=== PATIENT | male | born 1950 | race Caucasian/White ===

== ENCOUNTER 2023-11-22 14:37 | Inpatient (IN) ==
[2023-11-22] MEDS: ASPIRIN CHEW 324 MG ONE (14:57)
[2023-11-22] MEDS: TICAGRELOR 90 MG TAB ONE (15:03)
[2023-11-22] MEDS: HEPARIN SOD (PORCINE) 1000 UNIT/ML ONE (15:03)
--- NOTE | 2023-11-22 15:06 | Pre Anesthesia Assessment ---
Date of Service November 22, 2023 Pre Sedation Assessment Vital Signs Temp Pulse Pulse Resp BP BP Pulse Ox 11/22/23 15:00 57 L 14 146/115 H 11/22/23 14:59 66 17 95 11/22/23 14:59 146/115 H 11/22/23 14:59 55 L 11/22/23 14:59 11/22/23 14:56 56 L 22 11/22/23 14:40 96.8 F L 50 L 20 143/64 H 100 O2 Del Method O2 Flow Rate 11/22/23 15:00 Room Air 11/22/23 14:59 11/22/23 14:59 11/22/23 14:59 11/22/23 14:59 Room Air 95 11/22/23 14:56 11/22/23 14:40 Room Air Cardiovascular + regular rate Respiratory + respiratory effort normal Pre-Sedation Airway Assessment Smoking Status: Never smoker Hx Sleep Apnea: No Hx Difficult Intubation: No Short, Thick Neck: No Thyromental Distance: < 3.5 Finger Breadths Oral Cavity: + Dental Abnormalities Mallampati Class: III ASA: ASA4 Procedure Planning Contraindications for Sedation: none Current Medications Reviewed: Yes Notes The planned sedation has been discussed with the patient. Informed Consent was obtained. I have identified the patient, determined the appropriateness of sedation and have assessed the patient immediately prior to the procedure. All medicine(s) and interventions are by my order.
--- NOTE | 2023-11-22 15:12 | Cardiology Consultation ---
Date of Consultation November 22, 2023 Assessment & Plan (1) STEMI (ST elevation myocardial infarction): Presentation consistent with inferior STEMI and recommend proceeding with emergent cardiac catheterization and likely primary PCI. No apparent contraindications to procedure. Discussed risks, benefits, alternatives of procedure with patient and they are willing to proceed. Given IV heparin and ticagrelor 180 mg in the ED. Further recommendations pending findings of coronary angiography. History of Present Illness History of Present Illness 73-year-old male here with acute chest pain and ECG concerning for acute IA. Patient seen emergently in the ED after heart alert activated on arrival. No prior cardiac history. Cardiac risk factors include prediabetes, and reports multiple family members with cardiovascular disease. Also has a history of Crohn's disease on Humira. Chest pain began approximately 12:30 PM, approximately 2 hours prior to arrival. Describes substernal pain with associated nausea. Denies similar symptoms in the past. Ongoing chest pain in ED down to 3 out of 10. Hemodynamically stable. EKG showed sinus bradycardia with inferior ST elevations, Social history: Denies tobacco or alcohol. Still working doing arabella work. Allergies Allergy/AdvReac Type Severity Reaction Status Date / Time No Known Allergies Allergy Verified 11/22/23 15:06 Home Medications Medication Instructions Recorded Confirmed Type adalimumab 40 mg/0.4 mL 40 mg subcut .Q2WKS 11/22/23 11/22/23 History subcutaneous syringe kit (Humira(CF)) Patient History Social History Smoking Status: Never smoker Preferred Language: Hungarian Feels Safe at Home: Yes Review of Systems Review of Systems: Not obtained in the setting of emergent situation Physical Exam Physical Exam: General: Uncomfortable HEENT: Sclerae anicteric Lungs: Clear anteriorly Cardiac: Bradycardic, regular Vascular: 2+ radial Abdomen: Soft, nontender Extremities: Well perfused, no peripheral edema Neuro: Nonfocal Psych: Alert orient x3, normal affect and mood Results & Data Vital Signs (Past 12 Hours) Vital Signs Temp Pulse Pulse Resp BP BP Pulse Ox 11/22/23 15:00 57 L 14 146/115 H 11/22/23 14:59 66 17 95 11/22/23 14:59 146/115 H 11/22/23 14:59 55 L 11/22/23 14:59 11/22/23 14:56 56 L 22 11/22/23 14:40 96.8 F L 50 L 20 143/64 H 100 O2 Del Method O2 Flow Rate 11/22/23 15:00 Room Air 11/22/23 14:59 11/22/23 14:59 11/22/23 14:59 11/22/23 14:59 Room Air 95 11/22/23 14:56 11/22/23 14:40 Room Air PG Care Time/CCT Total # of Minutes Spent Total Time Spent with Patient: Total time spent is greater than 50% in coordination of care (as documented) at patient's floor/unit and/or counseling patient: Coding Level of Care Code 38482 OFFICE CONSULT LVL Diagnoses STEMI (ST elevation myocardial infarction) I21.3
--- NOTE | 2023-11-22 15:12 | History & Physical Report ---
Date of Service November 22, 2023 History of Present Illness Primary Care Provider: [facility] Jesus is a 73-year-old male with past medical history of [] who presents as a heart alert with an acute STEMI. Allergies Allergy/AdvReac Type Severity Reaction Status Date / Time No Known Allergies Allergy Verified 11/22/23 15:06 Home Medications Medication Instructions Recorded Confirmed Type adalimumab 40 mg/0.4 mL 40 mg subcut .Q2WKS 11/22/23 11/22/23 History subcutaneous syringe kit (Humira(CF)) Past Med/Surg History Problem List (Updated 11/22/23 @ 15:10 by Aly Stanford MD) STEMI (ST elevation myocardial infarction) Rectal fissure (Chronic) Diarrhea (Acute) Proctitis (Acute) Proctocolitis (Acute) Social History Smoking Status: Never smoker Preferred Language: Luxembourgish Feels Safe at Home: Yes Results & Data Results & Data Vital Signs (Past 12 Hours) Vital Signs Temp Pulse Pulse Resp BP BP Pulse Ox 11/22/23 15:04 11/22/23 15:00 150/86 H 11/22/23 15:00 59 L 19 11/22/23 15:00 57 L 14 146/115 H 11/22/23 14:59 66 17 95 11/22/23 14:59 146/115 H 11/22/23 14:59 55 L 11/22/23 14:59 11/22/23 14:56 56 L 22 11/22/23 14:40 36 C L 50 L 20 143/64 H 100 O2 Del Method O2 Flow Rate 11/22/23 15:04 Room Air 11/22/23 15:00 11/22/23 15:00 Room Air 11/22/23 15:00 Room Air 11/22/23 14:59 11/22/23 14:59 11/22/23 14:59 11/22/23 14:59 Room Air 95 11/22/23 14:56 11/22/23 14:40 Room Air PG Care Time/CCT Total # of Minutes Spent Total Time Spent with Patient: Total time spent is greater than 50% in coordination of care (as documented) at patient's floor/unit and/or counseling patient: Coding
[2023-11-22 15:13] LABS: Basophils # (auto) 0.06 K/uL (0.00-0.20); Basophils % (auto) 0.5 %; Eosinophils # (auto) 0.02 K/uL (0.00-0.50); Eosinophils % (auto) 0.2 %; Hematocrit (blood only) 43.8 % (42.0-52.0); Hemoglobin 15.3 g/dl (14.0-18.0); Immature Granulocytes # (auto) 0.06 K/uL (0.01-0.20); Immature Granulocytes % (auto) 0.5 %; Mean Corpuscular Hemoglobin 30.5 pg (25.0-34.0); Mean Corpuscular Hgb Conc 34.9 g/dL (32.0-36.0); Mean Corpuscular Volume 87.4 fL (80.0-100.0); Mean Platelet Volume 11.4 fL (9.4-12.4); Monocytes % (auto) 5.2 %; Neutrophils # (auto) 8.62 K/uL (1.40-6.50); Neutrophils % (auto) 74.6 %; Platelet Count 176 K/uL (130-400); RDW Coefficient of Variation 13.1 % (11.5-14.5); RDW Standard Deviation 41.4 fL (36.4-46.3); Red Blood Count 5.01 M/uL (4.70-6.10); White Blood Count 11.56 K/ul (4.8-10.8)
[2023-11-22 15:16] LABS: iSTAT Creatinine 1.1 mg/dl (0.6-1.3); iSTAT Hemoglobin 15.3 g/dl (14.0-18.0); iSTAT Ionized Calcium 1.19 mmol/l (1.12-1.32); iSTAT Potassium 3.9 mmol/L (3.3-5.0)
--- NOTE | 2023-11-22 15:19 | Emergency Department Note ---
Impression & Plan STEMI (ST elevation myocardial infarction) ED Provider Note NAME: JC DE PAZ AGE: 73 SEX: M : 1950 ARRIVES VIA: Walk-In INFORMANT: Patient, ED PROVIDER(S): Lauren Hurley MD CHIEF COMPLAINT: STEMI HPI: This is a 73-year-old male with history of Crohn's on Humira presenting for chest pain. Patient states that he midsternal chest pain started on 1230, about 2.5 hours ago. He states he is working outside, got slightly diaphoretic and felt this going well with his heart. He went home washed the mud off of himself and came to the emergency department. He reports that the pain is radiating to the back as of slight shortness of breath. As she states that his pain has reduced since he arrived here. He was 6/10 on arrival, now 3/10. He has never any heart attacks however his family does have extensive cardiac history. He took 2 Tylenol prior to arrival. ROS: See above HPI for pertinent positives & negatives. A total of 10 systems reviewed and were otherwise negative. PHYSICAL EXAMINATION: General: resting comfortably in no acute distress Head: Normocephalic and atraumatic Eyes: Normal inspection, extraocular muscles intact Ear, nose, throat: Normal external exam Neck: Normal range of motion Respiratory: lungs clear to auscultation bilaterally Cardiovascular: Regular rate/rhythm, no murmur GI: soft, nontender, no guarding or rebound Extremities: nontender, moves all extremities Neuro: The patient awake and alert, appropriately conversive, no focal deficits, symmetric faces Skin: Warm, dry, and intact MEDICAL DECISION MAKING: This is a 73-year-old male with history of Crohn's on Humira presenting for chest pain. Patient's EKG shows an obvious inferior STEMI with elevations in leads II, III and aVF with a stable depressions in leads I and aVL. STEMI alert called me upon arrival. Patient given chewable aspirin here. Dr. Stanford, head scorer, currently at bedside. Recommends giving heparin as well as Brilinta. Will order these. Patient emergently transferred up to Pit Operator. Differential diagnosis: ACS, PE, dissection ER treatment provided: See below Diagnostics interpreted by me: ECG: ECG independently interpreted by me with sinus bradycardia, rate of 48, normal axis, normal UT, normal QRS, normal QTc, significant ST depressions in leads II, III and aVF with her blood pressure is only 1 and aVL as well as V2. this is consistent with STEMI Cardiac Monitoring: An order was placed for continuous cardiac monitoring. The monitor shows a rate of 52 with sinus rhythm. Laboratory studies: As stated above and show below. Imaging studies: See below. Past Med/Surg History Problem List (Updated 11/23/23 @ 11:37 by Lauren Hurley MD) CAD (coronary artery disease) Diabetes Crohn's disease STEMI (ST elevation myocardial infarction) (Acute) Rectal fissure (Chronic) Diarrhea (Acute) Proctitis (Acute) Proctocolitis (Acute) Social History Smoking Status: Never smoker Second Hand Exposure: No; Do You Dip or Chew Tobacco: No; Hx Alcohol Use: No Hx Substance Use: No Preferred Language: Serbian Communication Ability: Effective Needle Straightener Required: No Beliefs That Will Affect Care: None Current Living Situation: Spouse Other Information That Helps Us Care for You: No Feels Safe at Home: Yes Safety Concerns: Feels Safe At This Time Assistive Devices: None Allergies Allergies Allergy/AdvReac Type Severity Reaction Status Date / Time No Known Allergies Allergy Verified 11/22/23 15:06 Home Meds Home Medications Medication Instructions Recorded Confirmed adalimumab 40 mg/0.4 mL 40 mg subcut .Q2WKS 11/22/23 11/22/23 subcutaneous syringe kit (Humira(CF)) Results & Data (ED) Vital Signs Vital Signs - 24 hr 11/22/23 14:40 11/22/23 14:40 11/22/23 14:56 Temperature 36 C L Temperature Source Temporal Artery Scan Pulse Rate 50 L 56 L Pulse Rate [Apical] Respiratory Rate 20 22 Respiratory Effort / Characteristics Short of Breath Spontaneous Short of Breath Respiratory Depth Normal Blood Pressure 143/64 H Blood Pressure [Left Arm] Blood Pressure Mean 90 Blood Pressure Mean [Left Arm] Pulse Oximetry 100 Oxygen Delivery Method Room Air Oxygen Flow Rate Sepsis Recent Fever Within 48 Hours No Sepsis New/Unexplained Change in Mental Status N/A Sepsis Action Taken by Nursing No Action Required 11/22/23 14:59 11/22/23 14:59 11/22/23 14:59 Temperature Temperature Source Pulse Rate 55 L Pulse Rate [Apical] Respiratory Rate Respiratory Effort / Characteristics Respiratory Depth Blood Pressure 146/115 H Blood Pressure [Left Arm] Blood Pressure Mean 122 Blood Pressure Mean [Left Arm] Pulse Oximetry Oxygen Delivery Method Room Air Oxygen Flow Rate 95 Sepsis Recent Fever Within 48 Hours Sepsis New/Unexplained Change in Mental Status Sepsis Action Taken by Nursing 11/22/23 14:59 11/22/23 15:00 11/22/23 15:00 Temperature Temperature Source Pulse Rate 66 59 L Pulse Rate [Apical] 57 L Respiratory Rate 17 14 19 Respiratory Effort / Characteristics Respiratory Depth Blood Pressure Blood Pressure [Left Arm] 146/115 H Blood Pressure Mean Blood Pressure Mean [Left Arm] 125 Pulse Oximetry 95 Oxygen Delivery Method Room Air Room Air Oxygen Flow Rate Sepsis Recent Fever Within 48 Hours Sepsis New/Unexplained Change in Mental Status Sepsis Action Taken by Nursing 11/22/23 15:00 11/22/23 15:04 Temperature Temperature Source Pulse Rate Pulse Rate [Apical] Respiratory Rate Respiratory Effort / Characteristics Respiratory Depth Blood Pressure 150/86 H Blood Pressure [Left Arm] Blood Pressure Mean 102 Blood Pressure Mean [Left Arm] Pulse Oximetry Oxygen Delivery Method Room Air Oxygen Flow Rate Sepsis Recent Fever Within 48 Hours Sepsis New/Unexplained Change in Mental Status Sepsis Action Taken by Nursing Laboratory Data 11/23/23 03:36 11/23/23 03:36 Lab Results 11/22/23 11/22/23 Range/Units 14:58 15:04 WBC 11.56 H (4.8-10.8) K/ul RBC 5.01 (4.70-6.10) M/uL Hgb 15.3 (14.0-18.0) g/dl POC Hgb 15.3 (14.0-18.0) g/dl Hct 43.8 (42.0-52.0) % POC Hct 45 (42-52) % MCV 87.4 (80.0-100.0) fL MCH 30.5 (25.0-34.0) pg MCHC 34.9 (32.0-36.0) g/dL RDW Std Deviation 41.4 (36.4-46.3) fL RDW Coeff of Aquilino 13.1 (11.5-14.5) % Plt Count 176 (130-400) K/uL MPV 11.4 (9.4-12.4) fL Immature Gran % (Auto) 0.5 % Neut % (Auto) 74.6 % Lymph % (Auto) 19.0 % [place] % (Auto) 5.2 % Eos % (Auto) 0.2 % Baso % (Auto) 0.5 % Neut # (Auto) 8.62 H (1.40-6.50) K/uL Lymph # (Auto) 2.20 (1.20-3.40) K/uL [place] # (Auto) 0.60 H (0.11-0.59) K/uL Eos # (Auto) 0.02 (0.00-0.50) K/uL Baso # (Auto) 0.06 (0.00-0.20) K/uL Immature Gran # (Auto) 0.06 (0.01-0.20) K/uL PT 10.3 (9.0-12.0) Seconds INR 0.9 (0.9-1.1) APTT 23 (21-31) Seconds PTT Ratio 0.9 POC Sodium 141 (135-144) mmol/L Sodium 139 (136-145) mmol/L POC Potassium 3.9 (3.3-5.0) mmol/L Potassium 3.8 (3.5-5.1) mmol/L POC Chloride 105 (101-112) mmol/L Chloride 105 (98-107) mmol/L Carbon Dioxide 22 (21-32) mmol/L POC Total CO2 20 L (24-31) mmol/L Anion Gap 12 H (3-11) POC Anion Gap 21.0 (16-25) mmol/L POC BUN 14 (7-18) mg/dl BUN 14 (6-23) mg/dl Creatinine 1.09 (0.6-1.4) mg/dl POC Creatinine 1.1 (0.6-1.3) mg/dl Est Cr Clr Drug Dosing 58.7 ml/min Est GFR ( Amer) 78.2 ml/min Est GFR (Non-Af Amer) 67.5 ml/min BUN/Creatinine Ratio 12.8 (10-20) Glucose 175 H (70-99(Fasting)) mg/dl POC Glucose (other) 172 H (70-99) mg/dl Calcium 10.3 (8.6-10.3) mg/dl POC Ioniz Calcium Sandie 1.19 (1.12-1.32) mmol/l Total Bilirubin 1.8 H (0.2-1.0) mg/dl AST 21 (13-39) U/L ALT 14 (7-52) U/L Alkaline Phosphatase 59 (34-104) U/L Troponin I High Sens 9.8 (0-20) pg/ml Total Protein 7.6 (6.0-8.3) gm/dl Albumin 4.4 (3.4-5.0) gm/dl Globulin 3.2 (2.5-4.0) gm/dl Albumin/Globulin Ratio 1.4 (0.9-2) Administered Medications Aspirin (Aspirin 81 Mg Ectab) 81 mg PO [facility] Stop: 12/23/23 08:59 Last Admin: 11/23/23 08:13 Dose: 81 mg Documented By: MITZYB Atorvastatin Calcium (Atorvastatin 40 Mg Tab) 80 mg PO [facility] Stop: 12/23/23 08:59 Last Admin: 11/23/23 08:13 Dose: 80 mg Documented By: EDMOND [facility]inopril (L[facility]op[facility] 10 Mg Tab) [facility] Stop: 12/23/23 08:59 Last Admin: 11/23/23 08:13 Dose: 10 mg Documented By: EDMOND Metoprolol Tartrate (Metoprolol Tartrate 25 Mg Tab) 12.5 mg PO BID [facility] Stop: 12/22/23 20:59 Last Admin: 11/23/23 09:00 Dose: 12.5 mg Documented By: Admin: 11/22/23 20:50 Dose: 12.5 mg Documented By: GEORGI Pantoprazole Sodium (Pantoprazole 40 Mg Tab) [facility] Stop: 12/23/23 08:59 Last Admin: 11/23/23 08:14 Dose: 40 mg Documented By: EDMOND Ticagrelor (Ticagrelor 90 Mg Tab) 90 mg PO BID [facility] Stop: 12/23/23 08:59 Last Admin: 11/23/23 08:14 Dose: 90 mg Documented By: EDMOND Discontinued Medications Aspirin (Aspirin Chew 324 Mg) Confirm Administered Dose 324 mg .ROUTE .STK-MED ONE Stop: 11/22/23 14:57 Last Admin: 11/22/23 14:57 Dose: 324 mg Documented By: HS Atropine Sulfate (Atropine Sulfate 0.1 Mg/Ml 10ml Syr) Confirm Administered Dose 1 mg IV .STK-MED ONE Stop: 11/22/23 15:10 Last Admin: 11/22/23 15:33 Dose: 0.5 mg Documented By: INSTALLATION HELPER Eptifibatide (Eptifibatide 2 Mg/Ml 10 Ml Vial (Pit Operator Use Only)) Confirm Administered Dose 40 mg IV .STK-MED ONE Stop: 11/22/23 15:25 Last Admin: 11/22/23 15:41 Dose: 28 mg Documented By: INSTALLATION HELPER Eptifibatide (Eptifibatide 0.75 Mg/Ml 75mg Vial (Pit Operator Use Only)) Confirm Administered Dose 75 mg IV .STK-MED ONE Stop: 11/22/23 15:26 Last Admin: 11/22/23 15:42 Dose: 75 mg Documented By: INSTALLATION HELPER Fentanyl Citrate (Fentanyl Citrate Pf 100 Mcg/2 Ml Vial) Confirm Administered Dose 100 mcg .ROUTE .STK-MED ONE Stop: 11/22/23 15:00 Last Increment: 11/22/23 16:12 Dose: 25 mcg Documented By: INSTALLATION HELPER Heparin Sodium (Porcine) (Heparin (Porcine) 1000 Unit/Ml 10 Ml (Pit Operator Use Only)) Confirm Administered Dose 10,000 units .ROUTE .STK-MED ONE Stop: 11/22/23 15:00 Last Admin: 11/22/23 16:12 Dose: 8,000 units Documented By: INSTALLATION HELPER Heparin Sodium (Porcine) (Heparin Sod (Porcine) 1000 Unit/Ml) Confirm Administered Dose 1,000 units .ROUTE .STK-MED ONE Stop: 11/22/23 15:02 Last Admin: 11/22/23 15:03 Dose: 5,000 units Documented By: CHELSEA Co-signed By: ML Heparin Sodium/Sodium Chloride (Heparin In Nss Infusion 1000 Unit/500 Ml (2 U/Ml) Bag) Confirm Administered Dose 3,000 units IV .STK-MED ONE Stop: 11/22/23 15:00 Last Admin: 11/22/23 15:32 Dose: 3,000 units Documented By: INSTALLATION HELPER Sodium Chloride (Nss) 1,000 mls @ 100 mls/hr IV .Q10H [facility] Stop: 11/22/23 21:29 Last Infusion: 11/23/23 00:39 Dose: Infused Documented By: Admin: 11/22/23 16:50 Dose: 100 mls/hr Documented By: TDT Eptifibatide (Integrilin) 75 mg in 100 mls @ 12.352 mls/hr IV .Q8H6M PRECIOUS; Protocol Stop: 11/22/23 22:29 Last Infusion: 11/22/23 22:35 Dose: Infused Documented By: GEORGI Co-signed By: JUAN Infusion: 11/22/23 19:05 Dose: 2.01 mcg/kg/min, 12.4 mls/hr Documented By: GEORGI Co-signed By: MARIAM Admin: 11/22/23 16:49 Dose: 2 mcg/kg/min, 12.4 mls/hr Documented By: EDISON Co-signed By: MARIAM Magnesium Sulfate/Dextrose (Magnesium Sulfate / D5w) 1 gm in 100 mls @ 50 mls/hr IV ONE ONE Stop: 11/23/23 07:56 Last Infusion: 11/23/23 08:33 Dose: Infused Documented By: Admin: 11/23/23 06:31 Dose: 50 mls/hr Documented By: GEORGI Ioversol (Optiray 350) Confirm Administered Dose 1 ml .ROUTE .STK-MED ONE Stop: 11/22/23 15:01 Last Admin: 11/22/23 16:13 Dose: 135 ml Documented By: INSTALLATION HELPER Midazolam HCl (Midazolam Hcl 1 Mg/Ml 2ml Vial) Confirm Administered Dose 2 mg .ROUTE .STK-MED ONE Stop: 11/22/23 15:00 Last Increment: 11/22/23 16:13 Dose: 1 mg Documented By: INSTALLATION HELPER Miscellaneous (Icu Protocol For Hyperglycemia) 1 each N/A ACHS [facility] Stop: 11/24/23 16:29 Last Admin: 11/23/23 08:13 Dose: 1 each Documented By: Admin: 11/22/23 20:50 Dose: 1 each Documented By: Admin: 11/22/23 18:18 Dose: Not Given Documented By: MARIAM Miscellaneous (Integrelin~Stop Order) 1 each N/A ONE ONE Stop: 11/22/23 22:30 Last Admin: 11/22/23 22:29 Dose: 1 each Documented By: GEORGI Nicardipine HCl (Nicardipine Hcl Inj 2.5 Mg/Ml 10 Ml Amp) Confirm Administered Dose 25 mg .ROUTE .STK-MED ONE Stop: 11/22/23 15:00 Last Admin: 11/22/23 15:33 Dose: 25 mg Documented By: INSTALLATION HELPER Nitroglycerin/Dextrose (Nitroglycerin/D5w 100mcg/Ml 20ml Syr) Confirm Administered Dose 2,000 mcg .ROUTE .STK-MED ONE Stop: 11/22/23 15:01 Last Admin: 11/22/23 15:33 Dose: 2,000 mcg Documented By: INSTALLATION HELPER Ticagrelor (Ticagrelor 90 Mg Tab) Confirm Administered Dose 180 mg .ROUTE .STK- MED ONE Stop: 11/22/23 15:02 Last Admin: 11/22/23 15:03 Dose: 180 mg Documented By: CHELSEA Discharge Plan Visit Data Chief Complaint: Chest Pain Stated Complaint: CHEST PAINS, DIZZINESS ED Provider: Lauren Hurley Discharge Problem: STEMI (ST elevation myocardial infarction) Discharge Instructions Interventions: ED Discharge Assessment Last Done: 11/22/23 15:04
[2023-11-22 15:28] LABS: Albumin Globulin Ratio 1.4 (0.9-2); Albumin Level 4.4 gm/dl (3.4-5.0); BUN Creatinine Ratio 12.8 (10-20); Bilirubin,Total 1.8 mg/dl (0.2-1.0); Calcium 10.3 mg/dl (8.6-10.3); Creatinine Clr Calc Pharmacy 58.7 ml/min; Est GFR (African American) 78.2 ml/min; Est GFR (Non-African American) 67.5 ml/min; Globulin 3.2 gm/dl (2.5-4.0); Potassium 3.8 mmol/L (3.5-5.1); Total Protein 7.6 gm/dl (6.0-8.3)
[2023-11-22] MEDS: niCARdipine HCL INJ 2.5 MG/ML 10 ML AMP ONE (15:33)
[2023-11-22] MEDS: NITROGLYCERIN/D5W 100MCG/ML 20ML SYR ONE (15:33)
[2023-11-22] MEDS: ATROPINE SULFATE 0.1 MG/ML 10ML SYR IV ONE (15:33)
[2023-11-22 15:36] LABS: Troponin I High Sensitivity 9.8 pg/ml (0-20)
[2023-11-22 15:40] LABS: INR 0.9 (0.9-1.1); Partial Thromboplastin Ratio 0.9; Partial Thromboplastin Time 23 Seconds (21-31); Prothrombin Time 10.3 Seconds (9.0-12.0)
[2023-11-22] MEDS: EPTIFIBATIDE 2 MG/ML 10 ML VIAL (CATH LAB USE ONLY) IV ONE (15:41)
[2023-11-22] MEDS: EPTIFIBATIDE 0.75 MG/ML 75MG VIAL (CATH LAB USE ONLY) IV ONE (15:42)
[2023-11-22] MEDS: HEPARIN (PORCINE) 1000 UNIT/ML 10 ML (CATH LAB USE ONLY) ONE (16:12)
[2023-11-22] MEDS: fentaNYL citrate PF 100 MCG/2 ML VIAL ONE (16:12)
--- NOTE | 2023-11-22 16:12 | History & Physical Report ---
Date of Service November 22, 2023 Assessment & Plan (1) STEMI (ST elevation myocardial infarction): Plan: Substernal chest pain, nausea, and diaphoresis developed around 1230 on 11/21 Heart alert in the ED; EKG revealed acute inferior STEMI Ear Nose Throat Surgeon with Dr. Stanford 100% mid RCA occlusion; s/p 2 LIZZIE Patient admitted to ICU Appreciate Cardiology consult Will continue Integrilin infusion for 6 hours for residual thrombus Ticagrelor 180 mg loading given in the ED Trend troponins to peak Echocardiogram ordered for the morning of 11/22 Patient will likely require DAPT x 1 year Beta-blockers/REFUGIO High-dose statin A.m. CBC, BMP, A1c, fasting lipid panel, mag (2) Crohn's disease: Plan: Continue Humira Plan Disposition: Admit to ICU Full code AHA diet History of Present Illness Chief Complaint: Chest pain Primary Care Provider: [facility] Jesus is a 73-year-old male with PMH of Crohn's disease (on Humira), proctitis, and rectal fissure. Patient presented for chest pain that began around 1230 on 11/21. 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 Then when driving home, he developed "squeezing" substernal chest pain that was constant. The pain radiated to his back. No radiation to the shoulders neck or jaw. Patient then became diaphoretic and nauseous. He took 2 tablets of Tylenol prior to coming in to the ED. EKG on arrival revealed acute inferior STEMI, and heart alert was called. Patient was taken to the Ear Nose Throat Surgeon with Dr. Stanford. Per review of operative note, patient was found to have severe CAD; successful PCI. Mid RCA stent secondary to 100% acute occlusion; a second stent was placed in the distal right posterior AV branch. Patient is chest pain-free following the procedure. He rates his pain 0 out of 10. He denies having any chest pain in the past few weeks, or exertional angina. He does have a history of esophageal reflux, but he does not believe this was chest pain. No prior experiences like this 1. No prior MIs to his knowledge. No PMH of HTN, HLD, DM, DVT/PE, or PVD. He does note he is borderline diabetic. He denies smoking, tobacco use, alcohol use, or recreational drug use. He does have a family history of extensive MIs/CVAs; for instance his grandma of a stroke. No family members that of MIs prior to 55 years old. ROS postcatheterization: Patient endorses some dizziness following the procedure that has resolved. Patient denies fever, chills, sweating, lightheadedness, headache, changes in vision, chest pain, chest pressure, chest palpitations, pleuritic CP, SOB, cough, abdominal pain, N/V/D, changes in urinary or bowel habits, or numbness or tingling in the arms or legs. Allergies Allergy/AdvReac Type Severity Reaction Status Date / Time No Known Allergies Allergy Verified 11/22/23 15:06 Home Medications Medication Instructions Recorded Confirmed Type adalimumab 40 mg/0.4 mL 40 mg subcut .Q2WKS 11/22/23 11/22/23 History subcutaneous syringe kit (Humira(CF)) Past Med/Surg History Problem List (Updated 11/22/23 @ 17:47 by Maynor Moy PA-C) Crohn's disease STEMI (ST elevation myocardial infarction) Rectal fissure (Chronic) Diarrhea (Acute) Proctitis (Acute) Proctocolitis (Acute) Social History Smoking Status: Never smoker Second Hand Exposure: No; Do You Dip or Chew Tobacco: No; Hx Alcohol Use: No Hx Substance Use: No Preferred Language: Ukrainian Communication Ability: Effective Secretarial Teacher Required: No Beliefs That Will Affect Care: None Current Living Situation: Spouse Other Information That Helps Us Care for You: No Feels Safe at Home: Yes Safety Concerns: Feels Safe At This Time Assistive Devices: Glasses Review of Systems Review of Systems: See HPI above Physical Exam Physical Exam: General: no acute distress; pleasant affect; non-toxic appearing; well- nourished; cooperative; SpO2 97% on RA HEENT: normocephalic, atraumatic; no scleral icterus; PERRLA; moist mucus membrane; vision and hearing grossly intact Neck: supple; no lymphadenopathy; trachea midline Skin: warm, dry without signs of tenting; no cyanosis; no rashes, bruising, lesions, or erythema noted CV: chest wall NTP; RRR; S1/S2 normal; no murmurs/rubs/gallops; pulses intact and symmetric at radial, DP, and PT Lungs: no acute respiratory distress; symmetrical chest wall expansion; clear breath sounds across all lung farmer w/o adventitious sounds; no wheezing ABD: Soft, NTP; BS present; no rebound/guarding; no distention MSK: no tics or fasciculations; no edema noted in the LEs b/l, nonerythematous; patient demonstrates ability to squeeze fingers with 5/5 correspondence specialist strength bilaterally Neuro: A&Ox3; normal mood and affect; fluent speech; no focal deficits; sensation grossly intact in the LEs b/l Results & Data Results & Data Vital Signs (Past 12 Hours) Vital Signs Temp Pulse Pulse Resp BP BP Pulse Ox 11/22/23 15:04 11/22/23 15:00 150/86 H 11/22/23 15:00 59 L 19 11/22/23 15:00 57 L 14 146/115 H 11/22/23 14:59 66 17 95 11/22/23 14:59 146/115 H 11/22/23 14:59 55 L 11/22/23 14:59 11/22/23 14:56 56 L 22 11/22/23 14:40 36 C L 50 L 20 143/64 H 100 O2 Del Method O2 Flow Rate 11/22/23 15:04 Room Air 11/22/23 15:00 11/22/23 15:00 Room Air 11/22/23 15:00 Room Air 11/22/23 14:59 11/22/23 14:59 11/22/23 14:59 11/22/23 14:59 Room Air 95 11/22/23 14:56 11/22/23 14:40 Room Air Laboratory Results Abnormal lab results 11/22/23 11/22/23 11/22/23 Range/Units 14:58 15:04 15:32 WBC 11.56 H (4.8-10.8) K/ul Neut # (Auto) 8.62 H (1.40-6.50) K/uL Lyman # (Auto) 0.60 H (0.11-0.59) K/uL Activ Coag Time Kaolin 239 H (94-140) SECONDS POC Total CO2 20 L (24-31) mmol/L Anion Gap 12 H (3-11) Glucose 175 H (70-99(Fasting)) mg/dl POC Glucose (other) 172 H (70-99) mg/dl Total Bilirubin 1.8 H (0.2-1.0) mg/dl 11/22/23 Range/Units 15:42 WBC (4.8-10.8) K/ul Neut # (Auto) (1.40-6.50) K/uL Lyman # (Auto) (0.11-0.59) K/uL Activ Coag Time Kaolin 439 H (94-140) SECONDS POC Total CO2 (24-31) mmol/L Anion Gap (3-11) Glucose (70-99(Fasting)) mg/dl POC Glucose (other) (70-99) mg/dl Total Bilirubin (0.2-1.0) mg/dl ECG Additional Comments: ECG on arrival revealed sinus bradycardia at [address] elevation in the inferior leads; QTc 428 Code Status & VTE Plan Code Status Full code (discussed with patient and patient's daughter at the bedside) VTE Prophylaxis Plan VTE Prophylaxis will be ordered: Yes Supervising Physician Co-Signing Physician Notes Patient seen and examined, chart reviewed, case discussed with Maynor Moy PA-C and I agree with the assessment and plan as above except as otherwise noted Labs and images reviewed 73-year-old male with history of Crohn's disease on Humira with no prior cardiac history who presented with sudden squeezing substernal chest pain while moving stumps at work. EKG showed acute STEMI, patient proceeded with the Ear Nose Throat Surgeon as a heart alert. Had 2 stents to the RCA. Due to significant clot noted during procedure most of which was aspirated patient was placed on Integrilin drip. At time of ICU reassessment he remains pain-free. He denies past history of hypertension, hyperlipidemia, diabetes, blood clots, and heart attacks. Denies history of tobacco use. I agree with management as above. Patient will be continued on DAPT aspirin/Brilinta, metoprolol, lisinopril, atorvastatin. PG Care Time/CCT Total # of Minutes Spent Total Time Spent with Patient: Total time spent is greater than 50% in coordination of care (as documented) at patient's floor/unit and/or counseling patient: [place] [address] INT INP/OBS CARE 3/75MIN Patient Type New History Comprehensive Exam Comprehensive Medical Decision Making High Complexity Diagnoses STEMI (ST elevation myocardial infarction) I21.3 Crohn's disease K50.90
[2023-11-22] MEDS: OPTIRAY 350 ONE (16:13)
[2023-11-22] MEDS: MIDAZOLAM HCL 1 MG/ML 2ML VIAL ONE (16:13)
[2023-11-22] MEDS ORDERED: ACETAMINOPHEN 325 MG TAB PO PRN (16:24)
[2023-11-22] MEDS ORDERED: ONDANSETRON INJ 2 MG/ML 2 ML VIAL IV PRN (16:24)
[2023-11-22] MEDS ORDERED: EPTIFIBATIDE BOLUS/DRIP IV STA (16:24)
--- NOTE | 2023-11-22 16:24 | Post Anesthesia Assessment ---
Date of Service November 22, 2023 Post Sedation Assessment Vital Signs Temp Pulse Pulse Resp BP BP Pulse Ox 11/22/23 15:04 11/22/23 15:00 150/86 H 11/22/23 15:00 59 L 19 11/22/23 15:00 57 L 14 146/115 H 11/22/23 14:59 66 17 95 11/22/23 14:59 146/115 H 11/22/23 14:59 55 L 11/22/23 14:59 11/22/23 14:56 56 L 22 11/22/23 14:40 96.8 F L 50 L 20 143/64 H 100 O2 Del Method O2 Flow Rate 11/22/23 15:04 Room Air 11/22/23 15:00 11/22/23 15:00 Room Air 11/22/23 15:00 Room Air 11/22/23 14:59 11/22/23 14:59 11/22/23 14:59 11/22/23 14:59 Room Air 95 11/22/23 14:56 11/22/23 14:40 Room Air Recovery Score Activity: Moves 4 extremities Respiration: Deep Breath/Cough Circulation: +/-20% PreAnes Value Consciousness: Fully Awake Oxygen Saturation: O2 needed for >90% Discharge Sedation Level of Care: Fast Track Phase II Post Sedation Plan On clinical assessment, the patient appears to have tolerated the sedation without complications. Patient is recovering as anticipated. Patient will continue to be monitored by nursing and may be discharged when sedation discharge criteria are met per below protocol. Upon Completions of procedure up to 15 minutes continue every 5 minute vital signs and the P.A.R. score; then discharge to a Phase I or Fast Track to Phase II per the following guidelines: * Discharge Patient to appropriate Phase II area if PAR is 8 or greater or return to pre- procedure baseline. The post - procedure orders will be as directed. * If PAR score is less than 8 or not return to pre-procedure baseline then patient will follow Phase I monitoring till PAR is reached for Phase II. The Phase I may be done in procedure room or may call to secure a Phase I area. * If naloxone or flumazenil are used for reversal, hold in Phase I for continued monitoring from when last reversal dose was given for a minimum of 60 minutes or longer pending the nurse and/or physician discretion of patient condition before discharge to Phase II. Please call the Sedation Physician to re-evaluate and complete post-note for discharge to Phase II area. Do NOT discharge from procedure sedation or Phase 1 until post- sedation evaluation note is complete by procedure /sedation MD Sedation Discharge Instructions to be given to the patient at discharge to home.
--- NOTE | 2023-11-22 16:32 | Electrocardiogram Report ---
Test Reason : Blood Pressure : / mmHG Vent. Rate : 048 BPM Atrial Rate : 048 BPM P-R Int : 134 ms QRS Dur : 092 ms QT Int : 480 ms P-R-T Axes : 031 035 100 degrees QTc Int : [address] elevation consider inferior injury or acute infarct ACUTE ND / STEMI Consider right ventricular involvement in acute inferior infarct Abnormal ECG When compared with ECG of 27-JAN-1998 21:05, Significant changes have occurred Confirmed by Meet Oleary ([id number]) on 11/22/2023 4:32:25 PM Referred By: Confirmed By:Meet Oleary
--- NOTE | 2023-11-22 16:35 | Cardiac Catheterization ---
[facility] Data: Networker Cardiac Status Clinical evaluation leading to the procedure CAD Presenation: STEMI Anginal Classification: CCS IV Diagnostic Physicians Name: Aly Stanford MD Closure Device Recommendations: PCI without planned CABG Cardiac Cath Procedure Full Procedure Date November 22, 2023 Pre-Procedure Diagnosis Pre-Procedure Diagnosis: STEMI AUC Score AUC Score: 9 Post-Procedure Diagnosis Post-Procedure Diagnosis: Severe CAD, Successful PCI and Normal Intracardiac Pressures Procedure(s) Performed Procedure(s) Performed: Coronary Angiography, Left Heart Cath, Aspiration Thrombectomy and Drug Eluting Stent Chart Writer Aly Stanford MD Clay Dry Press Operator(s) De[place]ler Estimated Blood Loss Estimated Blood Loss: 30 Medication(s) Medication(s): Fentanyl, Heparin, Integrilin, Lidocaine 1%, Nicardipine, Nitroglycerin and Versed Medication(s): Ticagrelor Summary of Findings Indication: STEMI/Heart Alert Access: 6 Fr right radial artery Catheters: [place], JR4 guide, pigtail Findings: LM -normal caliber, 50% distal stenosis LAD -medium caliber, 40-50% ostial, 30% proximal disease 30% mid disease. Distal vessel without significant disease and wraps around apex. Small to medium D1 with 60% proximal stenosis Ramusmedium caliber, no significant disease Circumflex -medium caliber, 4050% latemid stenosis at takeoff of small OM 2 RCA -dominant, large caliber, diffuse mid segment disease prior to 100% acute occlusion LVEDP -4 -- PCI -- Antithrombotic therapy: Heparin, Integrilin, ticagrelor Procedure: RCA cannulated with JR4 guide BMW wire passed across lesion into distal vessel Mid RCA lesion predilated with 2.5 compliant balloon After flow reestablished due to have heavy thrombus burden in the mid RCA and distally in right posterior view branch and distal PDA. Also noted to have severe stenosis prior to terminal PLB. [place] wire placed into right posterior AV branch. Attempt made at aspiration thrombectomy Started on IC/IV Integrilin Dilated mid RCA lesion stented with 3.5 x 38 mm Riesel drug-eluting stent Stent post-dilated with 4.0 noncompliant balloon IC vasodilators administered for spasm Persistent thrombus in right posterior AV branch. BMW wire redirected into distal PLB Successful aspiration thrombectomy of proximal right posterior AV branch thrombus Distal posterior AV branch stenosis dilated with 2.0 balloon Distal posterior AV branch into terminal PLB stented with 2.25 x 12 mm [place] drug-eluting stent Additional IC vasodilators administered Post procedure CASTRO 3 flow, stents well expanded with minimal residual stenosis and no apparent cardiac complications. Minimal residual thrombus noted in distal PDA. ST segments improved and chest pain-free. Arterial Closure: TR band Summary: 1. Inferior STEMI/Acute 100% mid RCA occlusion 2. Multivessel non-culprit coronary artery disease -50% distal left main stenosis 40-50% ostial LAD. Small D1 60% proximal 40-50% mid circumflex 3. Normal intracardiac filling pressure 4. Successful PCI of mid RCA occlusion with single long drug-eluting stent (3.5 x 38 mm Riesel; postdilated with 4.0 NC). 5. Successful PCI of distal right posterior AV branch into PLB with single LIZZIE (2.25 x 12 mm Riesel). Recommendations: Admit to ICU for continued monitoring Continue Integrilin infusion for 6 hours for residual thrombus Loaded with ticagrelor 180 mg in ED Continue dual-antiplatelet therapy for at least 1 year. Trend troponins until peak, Check Echo Uptitrate beta-javad/REFUGIO as BP allows High-dose statin Consult cardiac Rehab Hemodynamics Rest Ao:: 159/81/111 Final Ao: 95/58/74 LV: 94/4 Recommendations Recommendations: PCI without planned CABG Radiation Exposure (mGy) 3392 Contrast (mls) 135 Anesthesia Moderate 4268-3881 Procedural Complication(s) None Disposition ICU I attest to the content of the Intraoperative Record and any orders documented therein. Any exceptions are noted below. [facility] Card Cath Procedure Codes Cardiac Catheterization Procedure 1: Cardiovascular Cath Procedures: 33395 Coronaries and LHC (+/-LV) Moderate Sedation Procedure 1: Sedation/Anesthesia: 57316 Mod Sedation by the same physician;Init15 Min Child Age 5 & Up Procedure 2: Sedation/Anesthesia: 40300 Mod Sedation by the same physician; Ea [id number] Minutes Stenting Procedure 1: Cardiovascular Stent Procedures: 32292 Perc transluminal revascularization of acute sub/total occl, aMI PG Care Time/CCT Total # of Minutes Spent Total Time Spent with Patient: Total time spent is greater than 50% in coordination of care (as documented) at patient's floor/unit and/or counseling patient:
[2023-11-22] MEDS: EPTIFIBATIDE 75 MG/100 ML VIAL IV SCH (16:49)
[2023-11-22] MEDS: SODIUM CHLORIDE 0.9% 1,000 ML IV SCH (16:50)
[2023-11-22] MEDS: ICU Protocol for HYPERglycemia SCH (18:18)
--- NOTE | 2023-11-22 19:56 | Critical Care Consultation ---
Date of Consultation November 22, 2023 Assessment & Plan (1) STEMI (ST elevation myocardial infarction): 73-year-old male without cardiac history, now admitted to ICU for following inferior STEMI. Patient currently hemodynamically stable without use of vasopressors and sinus rhythm on monitor. No further chest pain at this time. - S/p PCI of mid RCA with LIZZIE x 1, PCI of distal right posterior AV branch into PLB with LIZZIE x 1 - Continue Integrilin infusion for 6 hours for residual thrombus - Received loading dose of Brilinta 180 mg in ED - Dual antiplatelet 1 year - Follow-up hemoglobin A1c - Trend troponins for peak - Follow-up TTE - Statin, MTP, ACEI - Continuous monitoring on telemetry overnight in ICU - Appreciate cardiology recommendations (2) Crohn's disease: Stable. On Humira subcu Biweekly History of Present Illness Attending Physician: Tommy Parish MD History of Present Illness Patient is a 73-year-old male with past medical history of Crohn's disease (on Humira biweekly subcu), presented to the emergency department earlier this afternoon with complaints of chest pain with radiation to the back and diaphoresis. Patient was found to have inferior ST elevation on EKG and heart alert was initiated. He was taken to Presentation Team Member where he was found to have occlusion of the RCA and distal right posterior AV branch. He is s/p successful PCI with LIZZIE x2. He was also noted to have significant clot burden, and is now on Integrilin drip. Patient now transferred to the ICU post cath for further management at this time. On arrival to the ICU the patient is alert and oriented without acute distress and hemodynamically stable. He denies current chest pain or palpitations, shortness of breath, dizziness or syncope, diaphoresis, nausea or vomiting, abdominal pain,. He denies recent illness or fevers, cough or congestion, changes in gait, changes in vision, swelling in hands or feet, changes in urinary frequency. He has no previous cardiac history. He denies smoking, alcohol use, or drug use. Patient admitted in ICU for ongoing monitoring overnight. 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 Beliefs That Will Affect Care: None Current Living Situation: Spouse Other Information That Helps Us Care for You: No Feels Safe at Home: Yes Safety Concerns: Feels Safe At This Time Assistive Devices: Glasses Review of Systems Review of Systems: All systems reviewed & are unremarkable except as noted in HPI & below Physical Exam Constitutional: cooperative and comfortable Eyes: PERRL, conjunctivae normal, anicteric sclerae ENMT: external ear and nose normal, oropharynx normal Neck: trachea midline, no thyromegaly Respiratory: normal respiratory effort, lungs clear to auscultation Cardiovascular: Rate/Rhythm: regular rate and regular rhythm Heart Sounds: normal S1 and normal S2; no murmur Vessels: no JVD Extremities: no edema Gastrointestinal (Abdomen): normal bowel sounds, soft, nontender, no hepatosplenomegaly Musculoskeletal: no cyanosis or clubbing, extremities motor strength 5/5 Skin: no rashes, warm and dry Neurologic: PERRL, EOMI, accommodation nl, no face palsy, no dysarthria Psychiatric: A+Ox3, euthymic affect Results & Data Results & Data Vital Signs (Past 12 Hours) Vital Signs Temp Pulse Pulse Resp BP BP Pulse Ox 11/22/23 17:15 83 20 120/67 97 11/22/23 17:00 79 23 95/65 L 96 11/22/23 16:45 77 19 114/79 96 11/22/23 16:30 74 19 113/80 98 11/22/23 16:25 78 112/76 11/22/23 16:25 11/22/23 16:25 36.5 C 77 19 112/76 98 11/22/23 15:04 11/22/23 15:00 150/86 H 11/22/23 15:00 59 L 19 11/22/23 15:00 57 L 14 146/115 H 11/22/23 14:59 66 17 95 11/22/23 14:59 146/115 H 11/22/23 14:59 55 L 11/22/23 14:59 11/22/23 14:56 56 L 22 11/22/23 14:40 36 C L 50 L 20 143/64 H 100 O2 Del Method O2 Flow Rate 11/22/23 17:15 Room Air 11/22/23 17:00 Room Air 11/22/23 16:45 Room Air 11/22/23 16:30 Room Air 11/22/23 16:25 11/22/23 16:25 Room Air 11/22/23 16:25 Room Air 11/22/23 15:04 Room Air 11/22/23 15:00 11/22/23 15:00 Room Air 11/22/23 15:00 Room Air 11/22/23 14:59 11/22/23 14:59 11/22/23 14:59 11/22/23 14:59 Room Air 95 11/22/23 14:56 11/22/23 14:40 Room Air Coding Level of Care Code 07828 IN/OBS CONSULT LVL 2,35M Diagnoses STEMI (ST elevation myocardial infarction) I21.3 Crohn's disease K50.90 Time Spent (min) 42
[2023-11-22] MEDS: METOPROLOL TARTRATE 25 MG TAB PO SCH (20:50)
[2023-11-22] MEDS: [UNRECOGNIZED DRUG - REMARK] ONE (22:29)
[2023-11-23 04:09] LABS: Basophils # (auto) 0.03 K/uL (0.00-0.20); Basophils % (auto) 0.3 %; Eosinophils # (auto) 0.04 K/uL (0.00-0.50); Eosinophils % (auto) 0.5 %; Hematocrit (blood only) 42.6 % (42.0-52.0); Hemoglobin 14.3 g/dl (14.0-18.0); Immature Granulocytes # (auto) 0.01 K/uL (0.01-0.20); Immature Granulocytes % (auto) 0.1 %; Lymphocytes # (auto) 2.02 K/uL (1.20-3.40); Lymphocytes % (auto) 22.8 %; Mean Corpuscular Hemoglobin 29.6 pg (25.0-34.0); Mean Corpuscular Hgb Conc 33.6 g/dL (32.0-36.0); Mean Corpuscular Volume 88.2 fL (80.0-100.0); Mean Platelet Volume 11.6 fL (9.4-12.4); Monocytes # (auto) 0.69 K/uL (0.11-0.59); Monocytes % (auto) 7.8 %; Neutrophils # (auto) 6.08 K/uL (1.40-6.50); Neutrophils % (auto) 68.5 %; Platelet Count 164 K/uL (130-400); RDW Coefficient of Variation 13.2 % (11.5-14.5); RDW Standard Deviation 42.9 fL (36.4-46.3); Red Blood Count 4.83 M/uL (4.70-6.10); White Blood Count 8.87 K/ul (4.8-10.8)
[2023-11-23 04:24] LABS: BUN Creatinine Ratio 16.3 (10-20); Calcium 9.3 mg/dl (8.6-10.3); Chol HDL Ratio 4.1 (0-5); Creatinine Clr Calc Pharmacy 72.6 ml/min; Est GFR (African American) 103.4 ml/min; Est GFR (Non-African American) 89.2 ml/min; Magnesium 1.9 mg/dl (1.7-2.4); Potassium 4.1 mmol/L (3.5-5.1)
[2023-11-23] MEDS: MAGNESIUM SULFATE / D5W 1 GM/100 ML BAG IV ONE (06:31)
[2023-11-23 07:47] LABS: Estimated Average Glucose 137 mg/dl; Hemoglobin A1C 6.4 % (4.5-5.6)
--- NOTE | 2023-11-23 07:48 | Critical Care Progress Note ---
Date of Service November 23, 2023 Assessment & Plan (1) STEMI (ST elevation myocardial infarction): (2) Diabetes: Plan Impression: 73-year-old male admitted with acute inferior HI status post cardiac catheterization with drug-eluting stent to the right coronary artery and distal right posterior AV branch. Multifocal disease otherwise. He is doing well clinically. Recommendations: 1. Acute HI: Continue dual antiplatelet agents. Beta-javad and REFUGIO inhibitor will be uptitrated. 2. Will need cardiac rehab as an outpatient. 3. Await follow-up echocardiogram. 4. Elevated A1c, consistent with diagnosis of diabetes. Insulin control for now. Will likely need transition to oral hypoglycemic and close outpatient follow-up Patient stable to transfer out of the intensive care unit. Critical care services will sign off. Feel free to contact us with questions or concerns Admission and Anticipated Discharge Date Admission Date: November 22, 2023 Subjective Patient seen and examined. EMR reviewed. Discussed with critical care UMER overnight. Patient is awake alert and conversant this morning. He has no chest pain. No shortness of breath. He tolerated diet. No nausea or vomiting. His cath site is clean dry and intact with no paresthesias. He overall feels well Review of Systems Review of Systems: All systems reviewed & are unremarkable except as noted in Subjective Physical Exam Constitutional: WD/WN, vitals as above Neck: trachea midline, no thyromegaly Respiratory: normal respiratory effort, lungs clear to auscultation Cardiovascular: RRR, no murmur, no edema Gastrointestinal (Abdomen): normal bowel sounds, soft, nontender, no hepatosplenomegaly Musculoskeletal: Extremities: extremities normal to inspection Skin: no rashes, warm and dry Neurologic: Nonfocal exam Lymphatic: no cervical lymphadenopathy Results & Data Results & Data Vital Signs (Past 12 Hours) Vital Signs Temp Pulse Resp BP Pulse Ox 11/23/23 06:30 67 18 98 11/23/23 06:17 54 L 15 98 11/23/23 06:02 58 L 28 H 99 11/23/23 05:45 58 L 20 98 11/23/23 05:30 58 L 27 H 99 11/23/23 05:16 55 L 20 98 11/23/23 05:00 52 L 18 98 11/23/23 05:00 145/82 H 11/23/23 04:45 60 21 98 11/23/23 04:30 54 L 21 97 11/23/23 04:15 55 L 24 97 11/23/23 04:00 54 L 21 98 11/23/23 04:00 145/82 H 11/23/23 03:58 36.9 C 11/23/23 03:45 54 L 27 H 96 11/23/23 03:30 53 L 20 99 11/23/23 03:15 56 L 28 H 99 11/23/23 03:00 135/82 11/23/23 03:00 50 L 23 97 11/23/23 02:56 51 L 22 97 11/23/23 02:56 131/79 11/23/23 02:46 54 L 22 96 11/23/23 02:31 49 L 22 97 11/23/23 02:30 128/76 11/23/23 02:28 59 L 21 98 11/23/23 02:15 54 L 21 98 11/23/23 02:00 129/71 11/23/23 02:00 56 L 17 99 11/23/23 01:45 57 L 22 98 11/23/23 01:45 127/70 11/23/23 01:32 51 L 25 H 97 11/23/23 01:30 107/60 11/23/23 01:28 52 L 21 96 11/23/23 01:15 54 L 25 H 98 11/23/23 01:15 125/74 11/23/23 01:00 56 L 23 96 11/23/23 01:00 132/73 11/23/23 00:45 54 L 21 97 11/23/23 00:30 106/64 11/23/23 00:30 57 L 20 97 11/23/23 00:15 126/78 11/23/23 00:15 53 L 22 98 11/23/23 00:00 56 L 11/23/23 00:00 120/75 11/23/23 00:00 58 L 19 100 11/23/23 00:00 36.9 C 11/22/23 23:45 51 L 15 98 11/22/23 23:45 109/72 11/22/23 23:30 133/78 11/22/23 23:30 60 26 H 99 11/22/23 23:15 122/71 11/22/23 23:15 55 L 25 H 96 11/22/23 23:00 57 L 15 97 11/22/23 23:00 113/72 11/22/23 22:45 124/66 11/22/23 22:45 56 L 22 97 11/22/23 22:30 120/67 11/22/23 22:30 65 17 98 11/22/23 22:15 119/74 11/22/23 22:15 69 20 98 11/22/23 22:00 65 24 97 11/22/23 21:45 122/69 11/22/23 21:45 59 L 21 98 11/22/23 21:30 108/73 11/22/23 21:30 58 L 23 98 11/22/23 21:15 127/73 11/22/23 21:15 57 L 24 98 11/22/23 21:00 61 23 98 11/22/23 21:00 116/72 11/22/23 20:45 118/75 11/22/23 20:45 62 21 100 11/22/23 20:30 118/70 11/22/23 20:30 61 17 97 11/22/23 20:15 120/71 11/22/23 20:15 61 24 97 11/22/23 20:00 37.0 C 11/22/23 20:00 123/77 11/22/23 20:00 61 24 98 Critical Care Results & Data Vital Signs (Past 12 Hours) Vital Signs Temp Pulse Resp BP Pulse Ox 11/23/23 06:30 67 18 98 11/23/23 06:17 54 L 15 98 11/23/23 06:02 58 L 28 H 99 11/23/23 05:45 58 L 20 98 11/23/23 05:30 58 L 27 H 99 11/23/23 05:16 55 L 20 98 11/23/23 05:00 52 L 18 98 11/23/23 05:00 145/82 H 11/23/23 04:45 60 21 98 11/23/23 04:30 54 L 21 97 11/23/23 04:15 55 L 24 97 11/23/23 04:00 54 L 21 98 11/23/23 04:00 145/82 H 11/23/23 03:58 36.9 C 11/23/23 03:45 54 L 27 H 96 11/23/23 03:30 53 L 20 99 11/23/23 03:15 56 L 28 H 99 11/23/23 03:00 135/82 11/23/23 03:00 50 L 23 97 11/23/23 02:56 51 L 22 97 11/23/23 02:56 131/79 11/23/23 02:46 54 L 22 96 11/23/23 02:31 49 L 22 97 11/23/23 02:30 128/76 11/23/23 02:28 59 L 21 98 11/23/23 02:15 54 L 21 98 11/23/23 02:00 129/71 11/23/23 02:00 56 L 17 99 11/23/23 01:45 57 L 22 98 11/23/23 01:45 127/70 11/23/23 01:32 51 L 25 H 97 11/23/23 01:30 107/60 11/23/23 01:28 52 L 21 96 11/23/23 01:15 54 L 25 H 98 11/23/23 01:15 125/74 11/23/23 01:00 56 L 23 96 11/23/23 01:00 132/73 11/23/23 00:45 54 L 21 97 11/23/23 00:30 106/64 11/23/23 00:30 57 L 20 97 11/23/23 00:15 126/78 11/23/23 00:15 53 L 22 98 11/23/23 00:00 56 L 11/23/23 00:00 120/75 11/23/23 00:00 58 L 19 100 11/23/23 00:00 36.9 C 11/22/23 23:45 51 L 15 98 11/22/23 23:45 109/72 11/22/23 23:30 133/78 11/22/23 23:30 60 26 H 99 11/22/23 23:15 122/71 11/22/23 23:15 55 L 25 H 96 11/22/23 23:00 57 L 15 97 11/22/23 23:00 113/72 11/22/23 22:45 124/66 11/22/23 22:45 56 L 22 97 11/22/23 22:30 120/67 11/22/23 22:30 65 17 98 11/22/23 22:15 119/74 11/22/23 22:15 69 20 98 11/22/23 22:00 65 24 97 11/22/23 21:45 122/69 11/22/23 21:45 59 L 21 98 11/22/23 21:30 108/73 11/22/23 21:30 58 L 23 98 11/22/23 21:15 127/73 11/22/23 21:15 57 L 24 98 11/22/23 21:00 61 23 98 11/22/23 21:00 116/72 11/22/23 20:45 118/75 11/22/23 20:45 62 21 100 11/22/23 20:30 118/70 11/22/23 20:30 61 17 97 11/22/23 20:15 120/71 11/22/23 20:15 61 24 97 11/22/23 20:00 37.0 C 11/22/23 20:00 123/77 11/22/23 20:00 61 24 98 Lab & Micro Results (Past 24 Hours) RBC 4.83 M/uL (4.70-6.10) 11/23/23 WBC 8.87 K/ul (4.8-10.8) 11/23/23 Hgb 14.3 g/dl (14.0-18.0) 11/23/23 Hct 42.6 % (42.0-52.0) 11/23/23 MCV 88.2 fL (80.0-100.0) 11/23/23 MCH 29.6 pg (25.0-34.0) 11/23/23 MCHC 33.6 g/dL (32.0-36.0) 11/23/23 RDW Standard Deviation 42.9 fL (36.4-46.3) 11/23/23 RDW Coefficient of Variation 13.2 % (11.5-14.5) 11/23/23 Plt Count 164 K/uL (130-400) 11/23/23 MPV 11.6 fL (9.4-12.4) 11/23/23 Neutrophils (%) (Auto) 68.5 % 11/23/23 Lymphocytes (%) (Auto) 22.8 % 11/23/23 Monocytes # (Auto) 0.69 K/uL (0.11-0.59) H 11/23/23 Eosinophils # (Auto) 0.04 K/uL (0.00-0.50) 11/23/23 Immature Granulocyte % (Auto) 0.1 % 11/23/23 Neutrophils # (Auto) 6.08 K/uL (1.40-6.50) 11/23/23 Lymphocytes # (Auto) 2.02 K/uL (1.20-3.40) 11/23/23 Monocytes # (Auto) 0.69 K/uL (0.11-0.59) H 11/23/23 Eosinophils # (Auto) 0.04 K/uL (0.00-0.50) 11/23/23 Basophils # (Auto) 0.03 K/uL (0.00-0.20) 11/23/23 Immature Granulocyte # (Auto) 0.01 K/uL (0.01-0.20) 4 Na 137 mmol/L (136-145) 11/23/23 K 4.1 mmol/L (3.5-5.1) 11/23/23 Cl 107 mmol/L (98-107) 11/23/23 CO2 23 mmol/L (21-32) 11/23/23 Anion Gap 7 (3-11) 11/23/23 BUN 13 mg/dl (6-23) 11/23/23 Creatinine 0.80 mg/dl (0.6-1.4) 11/23/23 Estimated GFR ( Amer) 103.4 ml/min 11/23/23 Estimated GFR (Non-Af Amer) 89.2 ml/min 11/23/23 BUN/Creatinine Ratio 16.3 (10-20) 11/23/23 Glu 120 mg/dl (70-99(Fasting)) H 11/23/23 Ca 9.3 mg/dl (8.6-10.3) 11/23/23 Total Bilirubin 1.8 mg/dl (0.2-1.0) H 11/22/23 AST 21 U/L (13-39) 11/22/23 ALT 14 U/L (7-52) 11/22/23 Alkaline Phosphatase 59 U/L (34-104) 11/22/23 TP 7.6 gm/dl (6.0-8.3) 11/22/23 Albumin 4.4 gm/dl (3.4-5.0) 11/22/23 Globulin 3.2 gm/dl (2.5-4.0) 11/22/23 Albumin/Globulin Ratio 1.4 (0.9-2) 11/22/23 Mg 1.9 mg/dl (1.7-2.4) 11/23/23 03:36 Calcium Level 9.3 mg/dl (8.6-10.3) 11/23/23 03:36 Prothromb Time International Ratio 0.9 (0.9-1.1) 11/22/23 14:5 8 I & O Totals 24 Hours 11/22/23 11/23/23 11/24/23 06:59 06:59 06:59 Intake Total 1081.000 / 1081.000 Output Total 650 / 650 Balance 431.000 / 431.000 Cumulative 11/22/23 14:37 thru 11/23/23 06:00 Intake Total 1081.000 Output Total 650 Balance 431.000 RT Ventilator Mngmt (Last Documented) Ventilator Ordered Settings Respiratory Rate 18 11/23/23 06:30 Ventilator - PT Measurements Respiratory Rate 18 Coding Level of Care Code 82936 SUB INP/OBS CARE 2/35MIN Diagnoses STEMI (ST elevation myocardial infarction) I21.3 Diabetes E11.9
[2023-11-23] MEDS: ASPIRIN 81 MG ECTAB PO SCH (08:13)
[2023-11-23] MEDS: lisinopril 10 MG TAB PO SCH (08:13)
[2023-11-23] MEDS: ATORVASTATIN 40 MG TAB PO SCH (08:13)
[2023-11-23] MEDS: PANTOprazole 40 MG TAB PO SCH (08:14)
[2023-11-23] MEDS: TICAGRELOR 90 MG TAB PO SCH (08:14)
[2023-11-23] MEDS ORDERED: lisinopril 5 MG TAB PO SCH (09:00)
--- NOTE | 2023-11-23 10:04 | Cardiology Progress Note ---
Date of Service November 23, 2023 Assessment & Plan (1) CAD (coronary artery disease): Plan: Inferior ME LIZZIE mid RCA, posterior AV branch Residual 50% distal left main, 40-50% ostial LAD, 60% small D1, 45% mid LCx 2. Ischemic cardiomyopathyEF 45 to 50%, inferior/inferoseptal wall motion abnormality 3. DyslipidemiaLDL 110 4. Borderline [id number] 6.4 5. Brief nonsustained VT 6. Crohn's disease 7. Mildly dilated ascending aorta, mild AI Doing well post ME. Chest pain-free. Hemodynamically stable No signs of heart failure on exam. No apparent access site complications. Low normal LV function on echo Trend troponin until peak Continue DAPT with aspirin, ticagrelor Lisinopril increased to 10 mg daily. Continue current metoprolol with relative bradycardia. Transition to Toprol- XL on discharge Continue current statin city clerk From a cardiac standpoint okay with transition to telemetry. Assuming no additional significant ectopy likely home tomorrow morning. Admission and Anticipated Discharge Date Admission Date: November 22, 2023 Subjective Feeling well this morning. No recurrent chest pain. Up walking in room to room. Telemetry reviewedbrief episodes of nonsustained VT, longest 7 beats. Review of Systems Review of Systems: All systems reviewed & are unremarkable except as noted in HPI & below Physical Exam Physical Exam: General: Comfortable HEENT: Sclerae anicteric Lungs: Clear to auscultation bilaterally, no crackles or wheezes Cardiac: Regular rate and rhythm, no murmurs. Vascular: Right radial artery access site with no ecchymosis, hematoma. Distal pulse and sensation intact. No carotid bruit Abdomen: Soft, nontender Extremities: Well perfused, no peripheral edema Neuro: Nonfocal Psych: Alert orient x3, normal affect and mood Results & Data Vital Signs (Past 12 Hours) Vital Signs Temp Pulse Resp BP Pulse Ox 11/23/23 09:03 65 13 98 11/23/23 08:32 72 15 98 11/23/23 08:00 141/88 H 11/23/23 08:00 55 L 20 98 11/23/23 07:46 66 22 98 11/23/23 07:30 66 20 98 11/23/23 07:00 137/83 11/23/23 07:00 59 L 23 98 11/23/23 06:30 67 18 98 05/22/24 06:17 54 L 15 98 11/23/23 06:02 58 L 28 H 99 11/23/23 05:45 58 L 20 98 11/23/23 05:30 58 L 27 H 99 11/23/23 05:16 55 L 20 98 11/23/23 05:00 52 L 18 98 11/23/23 05:00 145/82 H 11/23/23 04:45 60 21 98 11/23/23 04:30 54 L 21 97 11/23/23 04:15 55 L 24 97 11/23/23 04:00 54 L 21 98 11/23/23 04:00 145/82 H 11/23/23 03:58 98.4 F 11/23/23 03:45 54 L 27 H 96 11/23/23 03:30 53 L 20 99 11/23/23 03:15 56 L 28 H 99 11/23/23 03:00 135/82 11/23/23 03:00 50 L 23 97 11/23/23 02:56 51 L 22 97 11/23/23 02:56 131/79 11/23/23 02:46 54 L 22 96 11/23/23 02:31 49 L 22 97 11/23/23 02:30 128/76 11/23/23 02:28 59 L 21 98 11/23/23 02:15 54 L 21 98 11/23/23 02:00 129/71 11/23/23 02:00 56 L 17 99 11/23/23 01:45 57 L 22 98 11/23/23 01:45 127/70 11/23/23 01:32 51 L 25 H 97 11/23/23 01:30 107/60 11/23/23 01:28 52 L 21 96 11/23/23 01:15 54 L 25 H 98 11/23/23 01:15 125/74 11/23/23 01:00 56 L 23 96 11/23/23 01:00 132/73 11/23/23 00:45 54 L 21 97 11/23/23 00:30 106/64 11/23/23 00:30 57 L 20 97 11/23/23 00:15 126/78 11/23/23 00:15 53 L 22 98 05/22/24 00:00 56 L 05/24 00:00 120/75 11/23/23 00:00 58 L 19 100 11/23/23 00:00 98.4 F 11/22/23 23:45 51 L 15 98 11/22/23 23:45 109/72 11/22/23 23:30 133/78 11/22/23 23:30 60 26 H 99 11/22/23 23:15 122/71 11/22/23 23:15 55 L 25 H 96 11/22/23 23:00 57 L 15 97 11/22/23 23:00 113/72 11/22/23 22:45 124/66 11/22/23 22:45 56 L 22 97 11/22/23 22:30 120/67 11/22/23 22:30 65 17 98 11/22/23 22:15 119/74 11/22/23 22:15 69 20 98 11/22/23 22:00 65 24 97 PG Care Time/CCT Total # of Minutes Spent Total Time Spent with Patient: Total time spent is greater than 50% in coordination of care (as documented) at patient's floor/unit and/or counseling patient: Coding Level of Care Code 06496 SUB INP/OBS CARE 3/50MIN Diagnoses CAD (coronary artery disease) I25.10
--- NOTE | 2023-11-23 12:50 | XCELERA ---
[id number] [id number]
--- OUTSIDE RECORDS SUMMARY | 2023-11-23 13:16 | External Medical Summary | Summary of Care ---
Author Name Unknown Organization [facility] Address [address] [facility] [place] [address] Phone [phone] Care Team Providers Care Blurb Writer Name Role Phone Unavailable Primary Care Provider Unavailabl e Reason for Visit * Reason Onset Date Comments Patient Assistance Program 07/13/2023 11 TS W PATIENT ASSISTANCE- WAITING ON PROVIDER PORTION Encounter Details Date Type Department Care Team (Late st Contact Info) Description 07/13/2023 Telephone Gastroenterology, [facility] [address] [place] [address] Carolina Noyola CRNP [address] [place] [address] Patient Assistance Program (11 TSW PATIENT... Allergies No known active allergiesdocumented as of this encounter (statuses as of 08/29/2023) Medications Medication Sig Dispensed Refills Start Date End Date Status Multiple Vitamins-Minerals (ONE-A-DAY MENS HEALTH FORMULA) TABS Take by mouth. 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 Increased risk for Familial Adenomatous Polyposis. Please click the link below into your browser for a brief summary of current clinical management recommendations for Familial Adenomatous Polyposis. APC Crohn disease 04/09/2020 History of basal cell carcinoma 04/09/2020 documented as of this encounter (statuses as of 08/29/2023) Immunizations Name Administration Dates Next Due Hepatitis B, 20+ yrs 01/05/2017,08/06/2016,07/06 documented as of this encounter Social History Tobacco Use Types Packs/Day Years Used Date Smoking Tobacco: Never Smokeless Tobacco: Never Alcohol Use Standard Drinks/Week Comments Not Currently 0 (1 standard drink = 0.6 oz pur e alcohol) Sex and Gender Information Value Date Recorded Sex Assigned at Not on file Gender Identity Not on file Sexual Orientation Not on file Job Start Date Occupation Industry Not on file Not on file Not on file documented as of this encounter Miscellaneous Notes * Telephone Encounter - Marcos James RPh - 08/29/2023 9:37 AM EST Per [facility] notes, patient is to continue to receive from office machine punch operator. I attempted to contact patient - no answer and unable to leave voicemail. Will follow-up as indicated. Marcos James RPh Clinical Pharmacist, Gastroenterology 08/29/2023,9:38 AM * Telephone Encounter - Marcos James RP - 08/18/2023 10:25 AM EST Chart reviewed. Patient has given new pharmacy insurance information to [facility] and will be due to refill this week. Will continue to monitor and follow-up as indicated Marcos James RPh Clinical Pharmacist, Gastroenterology 08/18/2023,10:25 AM * Telephone Encounter - Sara Whitaker RN - 08/09/2023 11:38 AM EST Received a notification fax that Jesus was approved for My [employer] Assist. Approved through 08/03/2024. * Telephone Encounter - Marcos James [facility] - 08/03/2023 10:38 AM EST Noted - thank you! Per chart, patient's insurance will be active on 08/13. Per pre-cert, the office machine punch operator application is awaiting patient to submit income. Marcos James [facility] Clinical Pharmacist, Gastroenterology 08/03/2023,10:38 AM * Telephone Encounter - Marcos James [facility] - 08/03/2023 9:01 AM EST GSP - I see notes that Humira was recently shipped. Patient has been in the process of manufacturerpatient assistance since he started the year without Part D coverage. May you advise if this patient can continue to refill and that the patient assistance can be cancelled? * Telephone Encounter - Vita Pascal RN - 07/21/2023 9:36 AM EST Form signed by Carolina And faxed to [phone] Then to scan [facility] * Telephone Encounter - Shanta Pearce RN - 07/20/2023 2:08 PM EST Forwarded email to Carolina for signature. Nurses, after form is signed, fax to [phone] * Telephone Encounter - Marcos James [facility] - 07/20/2023 12:38 PM EST I attempted to contact patient x 2 to follow-up. Phone disconnects after a couple rings. Manager Strategic Partnerships assistance is still in process * Telephone Encounter - Marcos James [facility] - 07/13/2023 3:40 PM EST Received a call back from patient. [facility] advised this is in process and if approved, it will notbe active until 08/04. Patient states his old Part D insurance no longer exists - they were supposed to send a letter but patient never received. Patient was advised to contact with updates or if symptoms develop. [facility] - may medication assistance be started? * Telephone Encounter - Marcos James [facility] - 07/13/2023 1:15 PM EST Spoke with patient. He states he did not know his Part D . He contacted Medicare and had been connected to obtain [employer] Part D coverage on 07/11/23 but states this may take up to 10 days to be active. I highly advised patient to contact [facility] today to inquire on status and to request theapplication be marked urgent. Patient may be able to be approved for office machine punch operator assistance but this would likely take a longer time than having active insurance. Patient has no pens and is due 07/15. Patient will return call to video game script writer with update. Gastro Pre-Cert Request Specialty Medication: Yes. Medication/Disease State Information: Medication: Adalimumab (Humira) Maintenance - 40mg/0.8ml Pen - 40mg every 2 weeks Diagnosis (including ICD-10): Crohn's disease K50.90. Specialty medication - route to [id number]. Referral to pharmacist for: co-management. Office Information: Prescriber: Carolina Noyola Pre-cert: may you please complete an insurance eligibility check and if there is new insurance, complete an urgent auth for Humira? * Telephone Encounter - Carolina Noyola CRNP - 07/13/2023 12:50 PM EST [facility] nurses - can you assist to see if pt can qualify for Humira pt assistance? Does his Medicare benefits not cover this med? LEANDRO Moulton * Telephone Encounter - Sirena Silverio OSA - 07/13/2023 9:44 AM EST Luh is calling to let you know that Jesus no longer has insurance so for now he will not be able to get his medication he takes humira. They are trying to get another insurance but nothing has happened yet with it documented in this encounter Plan of Treatment Upcoming Encounters Date Type Department Care Team (Late st Contact Info) Description 09/29/2023 8:15 AM EDT Office Visit Dermatology [place] [facility] [address] [facility] [place] [address] Jai Christensen MD [address] [facility] [place] [address] Scheduled Procedures Name Priority Associated Diagnoses Date/Ti me COLONOSCOPY FLEXIBLE PROXIMA L DIAGNOSTIC Recall Other general symptoms and signs Crohn's disease with complication, unspecified gastrointestinal tract location (HCC) Other specified symptoms and signs involving the digestive system and abdomen Health Maintenance Due Date Last Done Comments COVID-19 Vaccine (#1) 1955 Pneumococcal Vaccine: 65+ Years (1 of 2 - PCV) 1957 Depression Screening 1963 DTaP,Tdap,and Td Vaccines (1 - Tdap) 1970 Zoster Vaccines (1 of 2) 1970 Cologuard 1996 Fecal Occult Blood Test 1996 Sigmoidoscopy 1996 Lipid Panel 06/22/2021 06/22/2016 Influenza Vaccine (FLU shot) (#1) 2023 Colonoscopy 09/24/2032 09/24/2022, 09/02, 08/05/2017, Additional history exists Colorectal Cancer Screening 09/24/2032 Hepatitis C Screening Completed 06/25/2016 Hepatitis B Completed 01/05/2017, 09/2016, 07/06/2016 GARDASIL-HPV IMMUNIZATION SERIES Aged Out No longer eligible based on patient's age to complete this topic MENINGOCOCCAL (MENACTRA/MENVEO) Aged Out No longer eligible based on patient's age to complete this topic documented as of this encounter Medical Devices Not on filedocumented as of this encounter
--- OUTSIDE RECORDS SUMMARY | 2023-11-23 13:16 | External Medical Summary | Summary of Care ---
Author Name Unknown Organization [facility] Address [address] [facility] [place] [address] Phone [phone] Care Team Providers Care Head Of Loss Prevention Name Role Phone Unavailable Primary Care Provider Unavailabl e Encounter Details Date Type Department Care Team ([facility] st Contact Info) Description 07/27/2023 [facility]ty [facility] - 08/22/[address] [place] [address] Medication, [facility] Specialty Refill, [facility] [address] [place] [address] Allergies No known active allergiesdocumented as of this encounter (statuses as of 08/24/2023) Medications Medication Sig Dispensed Refills Start Date End Date Status Multiple Vitamins-Minerals (ONE-A-DAY MENS HEALTH FORMULA) TABS Take by mouth. 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 Increased risk for Familial Adenomatous Polyposis. Please click the link below into your browser for a brief summary of current clinical management recommendations for Familial Adenomatous Polyposis. APC Crohn disease 04/09/2020 History of basal cell carcinoma 04/09/2020 documented as of this encounter (statuses as of 08/24/2023) Immunizations Name Administration Dates Next Due Hepatitis [...] on file documented as of this encounter Progress Notes * Jena Argueta CPhT - 08/24/2023 4:59 PM EST Pt getting free drug Jena Argueta Die Casting Machine Maintainer III [facility] 08/24/2023,4:59 PM * Alexandra Nieves windshield repair technician - 07/28/2023 11:15 AM EST Incoming return call from pt to update insurance. Pt updated ins. Info prior but states carmelo it has a start date of 08/13. Pt is working with pt asst. waiting to hear from [employer]. Changed ship date until after insurace is active Kiana Nieves sound technician supervisor [facility] 07/28/2023 11:26 AM * Elizabeth Oliver CPhT - 07/27/2023 3:48 PM EST Prescribed medication: Medication: Humira Shipment date: 08/03 Delivery method: Specialty Mail Location Medication Delivered too? Prescription Address: [address] [place] [address] Elizabeth Oliver CPhT [facility] 07/27/2023,3:48 PM documented in this encounter Plan of Treatment Upcoming Encounters Date Type Department Care Team (Late st Contact Info) Description 09/29/2023 8:15 AM EDT Office Visit Dermatology [facility] Sm[facility] [place] [address] [facility] [place] [address] Jai Christensen MD [address] [facility] [place] [address] Scheduled Procedures Name Priority Associated Diagnoses Date/Ti [...]
--- OUTSIDE RECORDS SUMMARY | 2023-11-23 13:17 | External Medical Summary | Summary of Care ---
Author Name Unknown Organization [facility] Address [address] [facility] [place] [address] Phone [phone] Care Team Providers Care Ui Ux Developer Name Role Phone Unavailable Primary Care Provider Unavailabl e Encounter Details Date Type Department Care Team ([facility] st Contact Info) Description 07/27/2023 Specialty Pharmacy [facility], [address] [address] Medication, [place] Specialty Refill, [address] [address] Allergies No known active allergiesdocumented as of this encounter (statuses as of 07/28/2023) Medications Medication Sig Dispensed Refills Start Date End Date Status Multiple Vitamins-Minerals (ONE-A-DAY MENS HEALTH FORMULA) TABS Take by mouth. 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 Increased risk for Familial Adenomatous Polyposis. Please click the link below into your browser for a brief summary of current clinical management recommendations for Familial Adenomatous Polyposis. APC Crohn disease 04/09/2020 History of basal cell carcinoma 04/09/2020 documented as of this encounter (statuses as of 07/28/2023) Immunizations Name Administration Dates Next Due Hepatitis [...] as of this encounter Progress Notes * Alexandra Nieves PHARM Tech - 07/28/2023 11:15 AM EST Incoming return call from pt to update insurance. Pt updated ins. Info prior but states carmelo it has a start date of 08/13. Pt is working with pt asst. waiting to hear from [employer]. Changed ship date until after insurace is active Kiana Nieves costume technician [facility] 07/28/2023 11:26 AM * Elizabeth Oliver CPhT - 07/27/2023 3:48 PM EST Prescribed medication: Medication: Humira Shipment date: 08/03 Delivery method: Specialty Mail Location Medication Delivered too? Prescription Address: [address] [place], [place] [address]e [facility] [place] [address] [facility] 07/27/2023,3:48 PM documented in this encounter Plan of Treatment Upcoming Encounters Date Type Department Care Team (Late st Contact Info) Description 09/29/2023 8:15 AM EDT Office Visit Dermatology State [place] [address] [place] [address] Jai Christensen MD [address] [place] [address] Scheduled Procedures Name Priority Associated Diagnoses Date/Ti me COLONOSCOPY FLEXIBLE PROXIMA L DIAGNOSTIC Recall Other general symptoms and signs Crohn's disease with complication, unspecified gastrointestinal tract location (HCC) Other specified symptoms and signs involving the digestive system and abdomen Health Maintenance Due Date Last Done Comments COVID-19 Vaccine (#1) 1955 Pneumococcal Vaccine: 65+ Years (1 - PCV) 1957 Depression Screening 1963 DTaP,Tdap,and [...]
--- OUTSIDE RECORDS SUMMARY | 2023-11-23 13:17 | External Medical Summary | Summary of Care ---
Author Name Unknown Organization [facility] Address [address] [facility] [place] [address] Phone [phone] Care Team Providers Care Shake Packer Name Role Phone Unavailable Primary Care Provider Unavailabl e Reason for Visit * Reason Onset Date Comments Patient Assistance Program 07/13/2023 11 TS W PATIENT ASSISTANCE- WAITING ON PROVIDER PORTION Encounter Details Date Type Department Care Team (Late st Contact Info) Description 07/13/2023 Telephone Gastroenterology, [facility] [address] [place] [address] Carolina Noyola CRNP [address] [place] [address] Patient Assistance Program (11 TSW PATIENT... Allergies No known active allergiesdocumented as of this encounter (statuses as of 07/20/2023) Medications Medication Sig Dispensed Refills Start Date End Date Status Multiple Vitamins-Minerals (ONE-A-DAY MENS HEALTH FORMULA) TABS Take by mouth. 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 Increased risk for Familial Adenomatous Polyposis. Please click the link below into your browser for a brief summary of current clinical management recommendations for Familial Adenomatous Polyposis. APC Crohn disease 04/09/2020 History of basal cell carcinoma 04/09/2020 documented as of this encounter (statuses as of 07/20/2023) Immunizations Name Administration Dates Next Due Hepatitis [...] encounter Miscellaneous Notes * Telephone Encounter - Shanta Pearce RN - 07/20/2023 2:08 PM EST Forwarded email to Carolina for signature. Nurses, after form is signed, fax to [phone] * Telephone Encounter - Marcos James RPh - 07/20/2023 12:38 PM EST I attempted to contact patient x 2 to follow-up. Phone disconnects after a couple rings. Plant Controls Specialist assistance is still in process * Telephone Encounter - Marcos James RPh - 07/13/2023 3:40 PM EST Received a call back from patient. [facility] advised this is in process and if approved, it will notbe active until 08/04. Patient states his old Part D insurance no longer exists - they were supposed to send a letter but patient never received. Patient was advised to contact with updates or if symptoms develop. CM - may medication assistance be started? * Telephone Encounter - Marcos James RPh - 07/13/2023 1:15 PM EST Spoke with patient. He states he did not know his Part D . He contacted Medicare and had been connected to obtain [employer] Part D coverage on 07/11/23 but states this may take up to 10 days to be active. I highly advised patient to contact [facility] today to inquire on status and to request theapplication be marked urgent. Patient may be able to be approved for partition making machine operator assistance but this would likely take a longer time than having active insurance. Patient has no pens and is due 07/15. Patient will return call to advertising copywriter with update. Gastro Pre-Cert Request Specialty Medication: Yes. Medication/Disease State Information: Medication: Adalimumab (Humira) Maintenance - 40mg/0.8ml Pen - 40mg every 2 weeks Diagnosis (including ICD-10): Crohn's disease K50.90. Specialty medication - route to [id number]. Referral to pharmacist for: co-management. Office Information: Prescriber: Carolina Noyola Pre-cert: may you please complete an insurance eligibility check and if there is new insurance, complete an urgent auth for Humira? * Telephone Encounter - Carolina Noyola CRNP - 07/13/2023 12:50 PM EST IFTIKHAR Rodríguez nurses - can you assist to see [...] Office Visit Dermatology [place] [facility] [place] [address] [facility] [place] [address] Jai Christensen MD 200 [facility] [place] [address] Scheduled Procedures Name Priority Associated Diagnoses Date/Ti [...]
--- OUTSIDE RECORDS SUMMARY | 2023-11-23 13:17 | External Medical Summary | Summary of Care ---
Author Name Unknown Organization [facility] Address [address] [facility] [place] [address] Phone [phone] Care Team Providers Care Abstract Manager Name Role Phone Unavailable Primary Care Provider Unavailabl e Reason for Visit * Reason Onset Date Comments Patient Assistance Program 07/13/2023 11 TS W PATIENT ASSISTANCE- WAITING ON PROVIDER PORTION Encounter Details Date Type Department Care Team (Late st Contact Info) Description 07/13/2023 Telephone Gastroenterology, [facility] [address] [place] [address] Carolina Noyola CRNP [address] [place] [address] Patient Assistance Program (11 TSW PATIENT... Allergies No known active allergiesdocumented as of this encounter (statuses as of 07/21/2023) Medications Medication Sig Dispensed Refills Start Date End Date Status Multiple Vitamins-Minerals (ONE-A-DAY MENS HEALTH FORMULA) TABS Take by mouth. 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 Increased risk for Familial Adenomatous Polyposis. Please click the link below into your browser for a brief summary of current clinical management recommendations for Familial Adenomatous Polyposis. APC Crohn disease 04/09/2020 History of basal cell carcinoma 04/09/2020 documented as of this encounter (statuses as of 07/21/2023) Immunizations Name Administration Dates Next Due Hepatitis [...] encounter Miscellaneous Notes * Telephone Encounter - Vita Pascal RN - 07/21/2023 9:36 AM EST Form signed by Carolina And faxed to [phone] Then to scan bin * Telephone Encounter - Shanta Pearce RN - 07/20/2023 2:08 PM EST Forwarded email to Carolina for signature. Nurses, after form is signed, fax to [phone] * Telephone Encounter - Marcos James RPh - 07/20/2023 12:38 PM EST I attempted to contact patient x 2 to follow-up. Phone disconnects after a couple rings. [employer] assistance is still in process * Telephone Encounter - Marcos James RPh - 07/13/2023 3:40 PM EST Received a call back from patient. [facility] advised this is in process and if approved, it will notbe active until 2/1. Patient states his old Part D insurance no longer exists - they were supposed to send a letter but patient never received. Patient was advised to contact with updates or if symptoms develop. [facility] - may medication assistance be started? * Telephone Encounter - Marcos James [facility] - 07/13/2023 1:15 PM EST Spoke with patient. He states he did not know his Part D . He contacted Medicare and had been connected to obtain [employer] Part D coverage on 07/11/23 but states this may take up to 10 days to be active. I highly advised patient to contact [employer] today to inquire on status and to request theapplication be marked urgent. Patient may be able to be approved for vocational nurse lvn assistance but this would likely take a longer time than having active insurance. Patient has no pens and is due 07/15. Patient will return call to va underwriter with update. Gastro Pre-Cert Request Specialty Medication: Yes. Medication/Disease State Information: Medication: Adalimumab (Humira) Maintenance - 40mg/0.8ml Pen - 40mg every 2 weeks Diagnosis (including ICD-10): Crohn's disease K50.90. Specialty medication - route to [id number]. Referral to pharmacist for: co-management. Office Information: [...] AM EDT Office Visit Dermatology [place] [place] [address] [facility] [place] [address] Jai Christensen MD [address] [facility] [place] [address] Scheduled Procedures Name Priority Associated Diagnoses Date/Ti [...]
--- OUTSIDE RECORDS SUMMARY | 2023-11-23 13:17 | External Medical Summary | Summary of Care ---
Author Name Unknown Organization [facility] Address [address] [facility] [place] [address] Phone [phone] Care Team Providers Care Layout Man Name Role Phone Unavailable Primary Care Provider Unavailabl e Reason for Visit * Reason Onset Date Comments Patient Assistance Program 07/13/2023 11 TS W PATIENT ASSISTANCE- WAITING ON PROVIDER PORTION Encounter Details Date Type Department Care Team (Late st Contact Info) Description 07/13/2023 Telephone Gastroenterology, [facility] [address] [place] [address] Carolina Noyola CRNP [address] [place] [address] Patient Assistance Program (11 TSW PATIENT... Allergies No known active allergiesdocumented as of this encounter (statuses as of 08/03/2023) Medications Medication Sig Dispensed Refills Start Date End Date Status Multiple Vitamins-Minerals (ONE-A-DAY MENS HEALTH FORMULA) TABS Take by mouth. 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 Increased risk for Familial Adenomatous Polyposis. Please click the link below into your browser for a brief summary of current clinical management recommendations for Familial Adenomatous Polyposis. APC Crohn disease 04/09/2020 History of basal cell carcinoma 04/09/2020 documented as of this encounter (statuses as of 08/03/2023) Immunizations Name Administration Dates Next Due Hepatitis [...] Notes * Telephone Encounter - Marcos James RP - 08/03/2023 9:01 AM EST [facility] - [...] Form signed by Carolina And faxed to [phone] Then to donald valentine * Telephone Encounter - Shanta Pearce RN - 07/20/2023 2:08 PM EST Forwarded email to Carolina for signature. Nurses, after form is signed, fax to [phone] * Telephone Encounter - Marcos James [facility] - 07/20/2023 12:38 PM EST I attempted to contact patient x 2 to follow-up. Phone disconnects after a couple rings. Arc Welder Apprentice assistance is still in process * Telephone Encounter - Marcos James [facility] - 07/13/2023 3:40 PM EST Received a call back from patient. [facility] advised this is in process and if approved, it will notbe active until 08/04. Patient states his old Part D insurance no longer exists - they were supposed to send a letter but patient never received. Patient was advised to contact with updates or if symptoms develop. [facility] - may medication assistance be started? * Telephone Encounter - Marcos James [facility] - 07/13/2023 1:15 PM EST Spoke with patient. He states he did not know his Part D . He contacted Medicare and had been connected to obtain [employer] Part D coverage on 07/11/23 but states this may take up to 10 days to be active. I highly advised patient to [facility] today to inquire on status and to request theapplication be marked urgent. Patient may be able to be approved for scientific systems analyst assistance but this would likely take a longer time than having active insurance. Patient has no pens and is due 07/15. Patient will return call to technical writer and editor with update. Gastro Pre-Cert Request Specialty Medication: Yes. Medication/Disease State Information: Medication: Adalimumab (Humira) Maintenance - 40mg/0.8ml Pen - 40mg every 2 weeks Diagnosis (including ICD-10): Crohn's disease K50.90. Specialty medication - route to [id number]. Referral to pharmacist for: co-management. Office Information: [...] his Medicare benefits not cover this med? Carolina Fisher LEANDRO Noyola * Telephone Encounter - Sirena Silverio OSA [...] 09/29/2023 8:15 AM EDT Office Visit Dermatology [facility] [place] [address] [facility] [place] [address] Jai Christensen MD [address] [facility] [place] [address] Scheduled Procedures Name Priority Associated Diagnoses Date/Ti [...]
--- OUTSIDE RECORDS SUMMARY | 2023-11-23 13:17 | External Medical Summary | Summary of Care ---
Author Name Unknown Organization [facility] Address [address] [facility] [place] [address] Phone [phone] Care Team Providers Care Hairspring Cutter Name Role Phone Unavailable Primary Care Provider Unavailabl e Reason for Visit * Reason Onset Date Comments Patient Assistance Program 07/13/2023 11 TS W PATIENT ASSISTANCE- WAITING ON PROVIDER PORTION Encounter Details Date Type Department Care Team (Late st Contact Info) Description 07/13/2023 Telephone Gastroenterology, [facility] [address] [place] [address] Carolina Noyola CRNP [address] [place] [address] Patient Assistance Program (11 TSW PATIENT... Allergies [...] 10/28/2020 Overview: pathogenic APC gene variant ([id number], p.[id number]) detected via [employer]. Increased risk for Familial Adenomatous Polyposis. Please [...] Form signed by Carolina And faxed to [phone] * Telephone Encounter - Shanta Pearce RN - 07/20/2023 2:08 PM EST Forwarded email to Carolina for signature. Nurses, after form is signed, fax to [phone] * Telephone Encounter - Marcos James RPh - 07/20/2023 12:38 PM EST I attempted to contact patient x 2 to follow-up. Phone disconnects after a couple rings. Music Pastor assistance is still in process * Telephone Encounter - Marcos James RPh - 07/13/2023 3:40 PM EST Received a call back from patient. [facility] advised this is in process and if approved, it will notbe active until 08/04. Patient states his old Part D insurance no longer exists - they were supposed to send a letter but patient never received. Patient was advised to contact with updates or if symptoms develop. [facility] - may medication assistance be started? * Telephone Encounter - Marcos James [facility] - 07/13/2023 1:15 PM EST Spoke with patient. He states he did not know his Part D . He contacted Medicare and had been connected to obtain [employer] Part D coverage on 07/11/23 but states this may take up to 10 days to be active. I highly advised patient to contact [employer] today to inquire on status and to request theapplication be marked urgent. Patient may be able to be approved for claims support specialist assistance but this would likely take a longer time than having active insurance. Patient has no pens and is due 07/15. Patient will return call to medical technical writer with update. Gastro Pre-Cert Request Specialty Medication: Yes. Medication/Disease State Information: Medication: Adalimumab (Humira) Maintenance - 40mg/0.8ml Pen - 40mg every 2 weeks Diagnosis (including ICD-10): Crohn's disease K50.90. Specialty medication - route to [id number]. Referral to pharmacist for: co-management. Office Information: [...] AM EDT Office Visit Dermatology [place] [address] [facility] [place] [address] Jai Christensen MD [address] [facility] [place] [address] Scheduled Procedures Name Priority Associated Diagnoses Date/Ti [...]
--- OUTSIDE RECORDS SUMMARY | 2023-11-23 13:17 | External Medical Summary | Summary of Care ---
Author Name Unknown Organization [facility] Address [address] [facility] [place] [address] Phone [phone] Care Team Providers Care Family Mediator Name Role Phone Unavailable Primary Care Provider Unavailabl e Encounter Details Date Type Department Care Team ([facility] st Contact Info) Description 07/27/2023 Specialty Pharmacy [facility], [address] [address] Medication, [place] Specialty Refill, [address] [address] Allergies No known active allergiesdocumented as of this encounter (statuses as of 07/27/2023) Medications Medication Sig Dispensed Refills Start Date End Date Status Multiple Vitamins-Minerals (ONE-A-DAY MENS HEALTH FORMULA) TABS Take by mouth. 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 Increased risk for Familial Adenomatous Polyposis. Please click the link below into your browser for a brief summary of current clinical management recommendations for Familial Adenomatous Polyposis. APC Crohn disease 04/09/2020 History of basal cell carcinoma 04/09/2020 documented as of this encounter (statuses as of 07/27/2023) Immunizations Name Administration Dates Next Due Hepatitis [...] as of this encounter Progress Notes * Elizabeth Oliver CPhT - 07/27/2023 3:48 PM EST Prescribed medication: Medication: Humira Shipment date: 08/03 Delivery method: Specialty Mail Location Medication Delivered too? Prescription Address: [address] [place] [address] Elizabeth Oliver CPhT [facility] 07/27/2023,3:48 PM documented in this encounter Plan of Treatment Upcoming Encounters Date Type Department Care Team (Late st Contact Info) Description 09/29/2023 8:15 AM EDT Office Visit Dermatology [facility] [address] [place] [address] Jai Christensen MD [address] [place] [address] Scheduled Procedures Name Priority Associated Diagnoses Date/Ti [...]
--- OUTSIDE RECORDS SUMMARY | 2023-11-23 13:17 | External Medical Summary | Summary of Care ---
Author Name Unknown Organization [facility] Address [address] [facility] [place] [address] Phone [phone] Care Team Providers Care Region Manager Name Role Phone Unavailable Primary Care Provider Unavailabl e Reason for Visit * Reason Onset Date Comments Outpatient Testing 08/17/2023 Encounter Details Date Type Department Care Team (Late st Contact Info) Description 08/17/2023 Telephone Gastroenterology, [facility] [address] [place] [address] Carolina Noyola CRNP [address] [place] [address] Outpatient Testing Allergies No known active allergiesdocumented as of this encounter (statuses as of 08/17/2023) Medications Medication Sig Dispensed Refills Start Date End Date Status Multiple Vitamins-Minerals (ONE-A-DAY MENS HEALTH FORMULA) TABS Take by mouth. 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 Increased risk for Familial Adenomatous Polyposis. Please click the link below into your browser for a brief summary of current clinical management recommendations for Familial Adenomatous Polyposis. APC Crohn disease 04/09/2020 History of basal cell carcinoma 04/09/2020 documented as of this encounter (statuses as of 08/17/2023) Immunizations Name Administration Dates Next Due Hepatitis [...] encounter Miscellaneous Notes * Telephone Encounter - Carolina Noyola CRNP - 08/17/2023 10:49 AM EST Received fax from [employer] Administration requesting Negative TB test results 5 years old or less. Pt hasn't had recent TB test result. TB quant gold test is ordered. I called and asked pt to obtainthis test LEANDRO Moulton documented in this encounter Plan of Treatment Upcoming Encounters Date Type Department Care Team (Late st Contact Info) Description 09/29/2023 8:15 AM EDT Office Visit Dermatology [place] [address] [facility] [place] [address] Jai Christensen MD [address] [facility] [place] [address] Scheduled Orders Name Type Priority Associated Diagnoses Orde r Schedule QUANTIFERON TB GOLD PLUS Lab Routine Crohn's disease without complication, unspecified gastrointestinal tract location (HCC) Expected: 08/17/2023, Expires: 08/17/2024 Scheduled Procedures Name Priority Associated Diagnoses Date/Ti [...] Not on filedocumented as of this encounter Visit Diagnoses Diagnosis Crohn's disease without complication, unspecified gastrointestinal tract location (HCC)- Primary documented in this encounter
--- OUTSIDE RECORDS SUMMARY | 2023-11-23 13:17 | External Medical Summary | Summary of Care ---
Author Name Unknown Organization [facility] Address [address] [facility] [place] [address] Phone [phone] Care Team Providers Care Metal Buffer Name Role Phone Unavailable Primary Care Provider Unavailabl e Reason for Visit * Reason Onset Date Comments Patient Assistance Program 07/13/2023 11 TS W PATIENT ASSISTANCE- WAITING ON PROVIDER PORTION Encounter Details Date Type Department Care Team (Late st Contact Info) Description 07/13/2023 Telephone Gastroenterology, [facility] [address] [place] [address] Carolina Noyola CRNP [address] [place] [address] Patient Assistance Program (11 TSW PATIENT... Allergies No known active allergiesdocumented as of this encounter (statuses as of 08/18/2023) Medications Medication Sig Dispensed Refills Start Date End Date Status Multiple Vitamins-Minerals (ONE-A-DAY MENS HEALTH FORMULA) TABS Take by mouth. 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 Increased risk for Familial Adenomatous Polyposis. Please click the link below into your browser for a brief summary of current clinical management recommendations for Familial Adenomatous Polyposis. APC Crohn disease 04/09/2020 History of basal cell carcinoma 04/09/2020 documented as of this encounter (statuses as of 08/18/2023) Immunizations Name Administration Dates Next Due Hepatitis [...] Telephone Encounter - Marcos James RPh - 08/18/2023 10:25 AM EST Chart reviewed. Patient has given new pharmacy insurance information to [facility] and will be due to refill this week. Will continue to monitor and follow-up as indicated Marcos James RPh Clinical Pharmacist, Gastroenterology 08/18/2023,10:25 AM * Telephone Encounter - Sara Whitaker RN - 08/09/2023 11:38 AM EST Received a notification fax that Jesus was approved for My [employer] Assist. Approved through 08/03/2024. * Telephone Encounter - Marcos James RPh - 08/03/2023 10:38 AM EST Noted - thank you! Per chart, patient's insurance will be active on 08/13. Per pre-cert, the electronic musical instrument repairer application is awaiting patient to submit income. Marcos James RPh Clinical Pharmacist, Gastroenterology 08/03/2023,10:38 AM * Telephone Encounter - Marcos James [facility] - 08/03/2023 9:01 AM EST [facility] - I see notes that Davonteira was recently shipped. Patient has been in the process of manufacturerpatient assistance since he started the year without Part D coverage. May you advise if this patient can continue to refill and that the patient assistance can be cancelled? * Telephone Encounter - Vita Pascal RN - 07/21/2023 9:36 AM EST Form signed by Carolina And faxed to [phone] Then to donald valentine * Telephone Encounter - Shanta Pearce RN - 07/20/2023 2:08 PM EST Forwarded email to Carolina for signature. Nurses, after form is signed, fax to [phone] * Telephone Encounter - Marcos James [facility] - 07/20/2023 12:38 PM EST I attempted to contact patient x 2 to follow-up. Phone disconnects after a couple rings. Pin Game Machine Inspector assistance is still in process * Telephone Encounter - Marcos James [facility] - 07/13/2023 3:40 PM EST Received a call back from patient. [facility] advised this is in process and if approved, it will notbe active until 08/04. Patient states his old Part D insurance no longer exists - they were supposed to send a letter but patient never received. Patient was advised to contact with updates or if symptoms develop. [facility] - may medication assistance be started? * Telephone Encounter - Marcos James [facility] - 07/13/2023 1:15 PM EST Spoke with patient. He states he did not know his Part D . He contacted Medicare and had been connected to obtain [employer] Part D coverage on 07/11/23 but states this may take up to 10 days to be active. I highly advised patient to contact [facility] today to inquire on status and to request theapplication be marked urgent. Patient may be able to be approved for electronic musical instrument repairer assistance but this would likely take a longer time than having active insurance. Patient has no pens and is due 07/15. Patient will return call to display card writer with update. Gastro Pre-Cert Request Specialty Medication: Yes. Medication/Disease State Information: Medication: Adalimumab (Humira) Maintenance - 40mg/0.8ml Pen - 40mg every 2 weeks Diagnosis (including ICD-10): Crohn's disease K50.90. Specialty medication - route to [id number]. Referral to pharmacist for: co-management. Office Information: [...] AM EDT Office Visit Dermatology Car[facility] Sm[facility] [place] [address] [facility] [place] [address] Jai Christensen MD [address] [facility] [place] [address] Scheduled Procedures Name Priority Associated Diagnoses Date/Ti [...]
--- OUTSIDE RECORDS SUMMARY | 2023-11-23 13:17 | External Medical Summary | Summary of Care ---
Author Name Unknown Organization [facility] Address [address] [facility] [place] [address] Phone [phone] Care Team Providers Care It Support Analyst Name Role Phone Unavailable Primary Care Provider Unavailabl e Reason for Visit * Reason Onset Date Comments Patient Assistance Program 07/13/2023 11 TS W PATIENT ASSISTANCE- WAITING ON PROVIDER PORTION Encounter Details Date Type Department Care Team (Late st Contact Info) Description 07/13/2023 Telephone Gastroenterology, [facility] [address] [place] [address] Carolina Noyola CRNP [address] [place] [address] Patient Assistance Program (11 TSW PATIENT... Allergies No known active allergiesdocumented as of this encounter (statuses as of 08/09/2023) Medications Medication Sig Dispensed Refills Start Date End Date Status Multiple Vitamins-Minerals (ONE-A-DAY MENS HEALTH FORMULA) TABS Take by mouth. 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 Increased risk for Familial Adenomatous Polyposis. Please click the link below into your browser for a brief summary of current clinical management recommendations for Familial Adenomatous Polyposis. APC Crohn disease 04/09/2020 History of basal cell carcinoma 04/09/2020 documented as of this encounter (statuses as of 08/09/2023) Immunizations Name Administration Dates Next Due Hepatitis [...] encounter Miscellaneous Notes * Telephone Encounter - Sara Whitaker RN - 08/09/2023 11:38 AM EST Received a notification fax that Jesus was approved for My [employer] Assist. Approved through 08/03/2024. * Telephone Encounter - Marcos James RPh - 08/03/2023 10:38 AM EST Noted - thank you! Per chart, patient's insurance will be active on 08/13. Per pre-cert, the maintenance aide application is awaiting patient to submit income. Macros James RPh Clinical Pharmacist, Gastroenterology 08/03/2023,10:38 AM * Telephone Encounter - Marcos James RPh - 08/03/2023 9:01 AM EST [facility] - [...] Form signed by Carolina And faxed to [phone] Then to scan bin * Telephone Encounter - Shanta Pearce RN - 07/20/2023 2:08 PM EST Forwarded email to Carolina for signature. Nurses, after form is signed, fax to [phone] * Telephone Encounter - Marcos James [facility] - 07/20/2023 12:38 PM EST I attempted to contact patient x 2 to follow-up. Phone disconnects after a couple rings. Certified Ophthalmic Technologist assistance is still in process * Telephone Encounter - Marcos James [place] [facility] - 07/13/2023 3:40 PM EST Received a call back from patient. [facility] advised this is in process and if approved, it will notbe active until 08/04. Patient states his old Part D insurance no longer exists - they were supposed to send a letter but patient never received. Patient was advised to contact with updates or if symptoms develop. [facility] - may medication assistance be started? * Telephone Encounter - Marcos James [place] [facility] - 07/13/2023 1:15 PM EST Spoke with patient. He states he did not know his Part D . He contacted Medicare and had been connected to obtain [facility] Part D coverage on 07/11/23 but states this may take up to 10 days to be active. I highly advised patient to contact [facility] today to inquire on status and to request theapplication be marked urgent. Patient may be able to be approved for maintenance aide assistance but this would likely take a longer time than having active insurance. Patient has no pens and is due 07/15. Patient will return call to chart writer with update. Gastro Pre-Cert Request Specialty Medication: Yes. Medication/Disease State Information: Medication: Adalimumab (Humira) Maintenance - 40mg/0.8ml Pen - 40mg every 2 weeks Diagnosis (including ICD-10): Crohn's disease K50.90. Specialty medication - route to [id number]. Referral to pharmacist for: co-management. Office Information: [...] State Kathi Randall [address] [place] [address] [address] Jai Christensen MD [address] [place] [address] Scheduled Procedures Name Priority Associated Diagnoses Date/Ti [...]
--- OUTSIDE RECORDS SUMMARY | 2023-11-23 13:17 | External Medical Summary | Summary of Care ---
Author Name Unknown Organization [facility] Address [address] [facility] [place] [address] Phone [phone] Care Team Providers Care Greens Or Grounds Superintendent Name Role Phone Unavailable Primary Care Provider Unavailabl e Reason for Visit * Reason Onset Date Comments Patient Assistance Program 07/13/2023 11 TS W PATIENT ASSISTANCE- WAITING ON PROVIDER PORTION Encounter Details Date Type Department Care Team (Late st Contact Info) Description 07/13/2023 Telephone Gastroenterology, [facility] [address] [place] [address] Carolina Noyola CRNP [address] [place] [address] Patient Assistance Program (11 TSW PATIENT... Allergies [...] 10/28/2020 Overview: pathogenic APC gene variant ([id number], p.[id number]) detected via [employer]. Increased risk for Familial Adenomatous Polyposis. Please [...] Encounter - Marcos James RP - 08/03/2023 10:38 AM EST Noted - thank you! Per chart, patient's insurance will be active on 08/13. Per pre-cert, the brand strategy manager application is awaiting patient to submit income. Marcos James RP Clinical Pharmacist, Gastroenterology 08/03/2023,10:38 AM * Telephone [...] Form signed by Carolina And faxed to [phone] Then to donald valentine * Telephone Encounter - Shanta Pearce RN - 07/20/2023 2:08 PM EST Forwarded email to Carolina for signature. Nurses, after form is signed, fax to [phone] * Telephone Encounter - Marcos James [facility] - 07/20/2023 12:38 PM EST I attempted to contact patient x 2 to follow-up. Phone disconnects after a couple rings. Cytotechnologist/Cytology Supervisor assistance is still in process * Telephone Encounter - Marcos James [facility] - 07/13/2023 3:40 PM EST Received a call back from patient. [facility] advised this is in process and if approved, it will notbe active until 08/04. Patient states his old Part D insurance no longer exists - they were supposed to send a letter but patient never received. Patient was advised to contact with updates or if symptoms develop. [facility] - may medication assistance be started? * Telephone Encounter - Marcos James [facility] - 07/13/2023 1:15 PM EST Spoke with patient. He states he did not know his Part D . He contacted Medicare and had been connected to obtain [employer] Part D coverage on 07/11/23 but states this may take up to 10 days to be active. I highly advised patient to contact [facility] today to inquire on status and to request theapplication be marked urgent. Patient may be able to be approved for brand strategy manager assistance but this would likely take a longer time than having active insurance. Patient has no pens and is due 07/15. Patient will return call to newspaper writer with update. Gastro Pre-Cert Request Specialty Medication: Yes. Medication/Disease State Information: Medication: Adalimumab (Humira) Maintenance - 40mg/0.8ml Pen - 40mg every 2 weeks Diagnosis (including ICD-10): Crohn's disease K50.90. Specialty medication - route to [id number]. Referral to pharmacist for: co-management. Office Information: [...] AM EDT Office Visit Dermatology Carine Smiley [place] [address] [place] [address] Jai Christensen MD [address] [facility] [place] [address] Scheduled Procedures Name Priority Associated Diagnoses Date/Ti [...]
--- OUTSIDE RECORDS SUMMARY | 2023-11-23 13:18 | External Medical Summary | Summary of Care ---
Author Name Unknown Organization [facility] Address [address] [place] [address] Phone [phone] Care Team Providers Care French Teacher Name Role Phone Unavailable Primary Care Provider Unavailabl e Reason for Visit * Reason Comments Medication Refill Encounter Details Date Type Department Care Team (Late st Contact Info) Description [facility] [address] [place], [place] [id number] Carolina Gar CRNP [address] [place] [address] Allergies No known active allergiesdocumented as of this encounter (statuses as of 06/06/2023) Medications Medication Sig Dispensed Refills Start Date End Date Status Multiple Vitamins-Minerals (ONE-A-DAY MENS HEALTH FORMULA) TABS Take by mouth. 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 Increased risk for Familial Adenomatous Polyposis. Please click the link below into your browser for a brief summary of current clinical management recommendations for Familial Adenomatous Polyposis. APC Crohn disease 04/09/2020 History of basal cell carcinoma 04/09/2020 documented as of this encounter (statuses as of 06/06/2023) Immunizations Name Administration Dates Next Due Hepatitis [...] encounter Miscellaneous Notes * Telephone Encounter - Yola Acosta RPh - 06/06/2023 1:26 PM ESTSigned Prescriptions: Disp Refills Humira Pen 40 MG/0.8ML Subcutaneous Pen-in*2 mL 5 Sig: INJECT 40 MG (1 PEN) UNDER THE SKIN EVERY 14 DAYSAuthorizing Provider: CAROLINA GAR User: YOLA ACOSTA documented in this encounter Plan of Treatment Upcoming Encounters Date Type Department Care Team (Late st Contact Info) Description 09/29/2023 8:15 AM EDT Office Visit Dermatology State Kathi Randall [address] [place] [address] Jai Christensen MD [address] [place] [address] Scheduled Procedures Name Priority Associated Diagnoses Date/Ti [...]
--- OUTSIDE RECORDS SUMMARY | 2023-11-23 13:18 | External Medical Summary | Summary of Care ---
Author Name Unknown Organization [facility] [address] [facility] [place] [address] Phone [phone] Care Team Providers Care Channel Sales Director Name Role Phone Unavailable Primary Care Provider Unavailabl e Encounter Details Date Type Department Care Team ([facility] st Contact Info) Description 06/06/2023 Specialty Pharmacy [facility], [address] [place] [address] Refill, [address] [address] Allergies No known active allergiesdocumented as of this encounter (statuses as of 06/06/2023) Medications Medication Sig Dispensed Refills Start Date End Date Status Multiple Vitamins-Minerals (ONE-A-DAY MENS HEALTH FORMULA) TABS Take by mouth. 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 Increased risk for Familial Adenomatous Polyposis. Please [...] as of this encounter Progress Notes * Diamond Cortes CPhT - 06/06/2023 10:02 AM EST Prescribed medication: Medication: humira Shipment date: 06/13 refill Delivery method: Specialty Mail Location Medication Delivered too? [address] [place] [address] Diamond Cortes CPhT [facility] 06/06/2023,10:02 AM documented in this encounter Plan of Treatment Upcoming Encounters Date Type Department Care Team (Late st Contact Info) Description 09/29/2023 8:15 AM EDT Office Visit Dermatology [facility] [place] [address] [facility] [place] [address] Jai Christensen MD [address] [facility] [place] [address] Scheduled Procedures Name Priority Associated Diagnoses Date/Ti [...]
--- OUTSIDE RECORDS SUMMARY | 2023-11-23 13:18 | External Medical Summary | Summary of Care ---
Author Name Unknown Organization [facility] Address [address] [facility] [place] [address] Phone [phone] Care Team Providers Care Fluid Dynamicist Name Role Phone Unavailable Primary Care Provider Unavailabl e Reason for Visit * Reason Onset Date Comments Patient Assistance Program 07/13/2023 11 TS W PATIENT ASSISTANCE- WAITING ON PROVIDER PORTION Encounter Details Date Type Department Care Team (Late st Contact Info) Description 07/13/2023 Telephone Gastroenterology, [facility] [address] [place] [address] Carolina Noyola CRNP [address] [place] [address] Patient Assistance Program (11 TSW PATIENT... Allergies No known active allergiesdocumented as of this encounter (statuses as of 07/14/2023) Medications Medication Sig Dispensed Refills Start Date End Date Status Multiple Vitamins-Minerals (ONE-A-DAY MENS HEALTH FORMULA) TABS Take by mouth. 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 Increased risk for Familial Adenomatous Polyposis. Please click the link below into your browser for a brief summary of current clinical management recommendations for Familial Adenomatous Polyposis. APC Crohn disease 04/09/2020 History of basal cell carcinoma 04/09/2020 documented as of this encounter (statuses as of 07/14/2023) Immunizations Name Administration Dates Next Due Hepatitis [...] Notes * Telephone Encounter - Marcos James [facility] - 07/13/2023 3:40 PM EST Received a call back from patient. [facility] advised this is in process and if approved, it will notbe active until 08/04. Patient states his old Part D insurance no longer exists - they were supposed to send a letter but patient never received. Patient was advised to contact with updates or if symptoms develop. [facility] - may medication assistance be started? * Telephone Encounter - Marcos James [facility] - 07/13/2023 1:15 PM EST Spoke with patient. He states he did not know his Part D . He contacted Medicare and had been connected to obtain [employer] Part D coverage on 07/11/23 but states this may take up to 10 days to be active. I highly advised patient to contact [facility] today to inquire on status and to request theapplication be marked urgent. Patient may be able to be approved for software quality assurance analyst assistance but this would likely take a longer time than having active insurance. Patient has no pens and is due 07/15. Patient will return call to marketing writer with update. Gastro Pre-Cert Request Specialty Medication: Yes. Medication/Disease State Information: Medication: Adalimumab (Humira) Maintenance - 40mg/0.8ml Pen - 40mg every 2 weeks Diagnosis (including ICD-10): Crohn's disease K50.90. Specialty medication - route to [id number]. Referral to pharmacist for: co-management. Office Information: [...] AM EDT Office Visit Dermatology Carine Smiley [place] [address] [place] [address] Jai Christensen MD [address] [facility] [place] [address] Scheduled Procedures Name Priority Associated Diagnoses Date/Ti [...]
--- OUTSIDE RECORDS SUMMARY | 2023-11-23 13:18 | External Medical Summary | Summary of Care ---
Author Name Unknown Organization [facility] Address [address] [facility] [place] [address] Phone [phone] Care Team Providers Care Embroidery Cutter Name Role Phone Unavailable Primary Care Provider Unavailabl e Reason for Visit * Reason Onset Date Comments Pre Cert/Prior Auth 07/13/2023 Encounter Details Date Type Department Care Team (Late st Contact Info) Description 07/13/2023 Telephone Gastroenterology, [facility] [address] [place] [address] Carolina Noyola CRNP [address] [place] [address] Pre Cert/Prior Auth Allergies No known active allergiesdocumented as of this encounter (statuses as of 07/13/2023) Medications Medication Sig Dispensed Refills Start Date End Date Status Multiple Vitamins-Minerals (ONE-A-DAY [facility] FORMULA) TABS Take by mouth. 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 Increased risk for Familial Adenomatous Polyposis. Please click the link below into your browser for a brief summary of current clinical management recommendations for Familial Adenomatous Polyposis. APC Crohn disease 04/09/2020 History of basal cell carcinoma 04/09/2020 documented as of this encounter (statuses as of 07/13/2023) Immunizations Name Administration Dates Next Due Hepatitis [...] Notes * Telephone Encounter - Marcos James [facility] - 07/13/2023 3:40 PM EST Received a call back from patient. [facility] advised this is in process and if approved, it will notbe active until 08/04. Patient states his old Part D insurance no longer exists - they were supposed to send a letter but patient never received. Patient was advised to contact with updates or if symptoms develop. [facility] - may medication assistance be started? * Telephone Encounter - Marcos James [facility] - 07/13/2023 1:15 PM EST Spoke with patient. He states he did not know his Part D . He contacted Medicare and had been connected to obtain [employer] Part D coverage on 07/11/23 but states this may take up to 10 days to be active. I highly advised patient to contact [facility] today to inquire on status and to request theapplication be marked urgent. Patient may be able to be approved for core driller assistance but this would likely take a longer time than having active insurance. Patient has no pens and is due 07/15. Patient will return call to ghost writer with update. Gastro Pre-Cert Request Specialty Medication: Yes. Medication/Disease State Information: Medication: Adalimumab (Humira) Maintenance - 40mg/0.8ml Pen - 40mg every 2 weeks Diagnosis (including ICD-10): Crohn's disease K50.90. Specialty medication - route to [id number]. Referral to pharmacist for: co-management. Office Information: [...] AM EDT Office Visit Dermatology Carine Smiley [place] [address] [facility] [address] [place] [address] Jai Christensen MD [address] [place] [address] Scheduled Procedures Name Priority Associated Diagnoses Date/Ti [...]
--- OUTSIDE RECORDS SUMMARY | 2023-11-23 13:18 | External Medical Summary | Summary of Care ---
Author Name Unknown Organization [facility] Address [address] [facility] [place] [address] Phone [phone] Care Team Providers Care Sales Record Clerk Name Role Phone Unavailable Primary Care Provider Unavailabl e Reason for Visit * Reason Onset Date Comments Patient Assistance Program 07/13/2023 Humir a- no rx coverage Encounter Details Date Type Department Care Team (Late st Contact Info) Description 07/13/2023 Telephone Gastroenterology, [facility] [address] [place] [address] Carolina Noyola CRNP [address] [place] [address] Patient Assistance Program (Humira- no rx ... 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 Increased risk for Familial Adenomatous Polyposis. Please [...] Notes * Telephone Encounter - Marcos James [facility] - 07/13/2023 3:40 PM EST Received a call back from patient. [facility] advised this is in process and if approved, it will notbe active until 08/04. Patient states his old Part D insurance no longer exists - they were supposed to send a letter but patient never received. Patient was advised to contact with updates or if symptoms develop. [facility] - may medication assistance be started? * Telephone Encounter - Marcos James [facility] - 07/13/2023 1:15 PM EST Spoke with patient. He states he did not know his Part D . He contacted Medicare and had been connected to obtain [employer] Part D coverage on 07/11/23 but states this may take up to 10 days to be active. I highly advised patient to contact [facility] today to inquire on status and to request theapplication be marked urgent. Patient may be able to be approved for welt rougher assistance but this would likely take a longer time than having active insurance. Patient has no pens and is due 07/15. Patient will return call to bond underwriter with update. Gastro Pre-Cert Request Specialty Medication: Yes. Medication/Disease State Information: Medication: Adalimumab (Humira) Maintenance - 40mg/0.8ml Pen - 40mg every 2 weeks Diagnosis (including ICD-10): Crohn's disease K50.90. Specialty medication - route to [id number]. Referral to pharmacist for: co-management. Office Information: [...] AM EDT Office Visit Dermatology Carine Smiley [place] [address] [place] [address] Jai Christensen MD 200 [facility] [place] [address] Scheduled Procedures Name Priority Associated Diagnoses Date/Ti [...]
--- OUTSIDE RECORDS SUMMARY | 2023-11-23 13:18 | External Medical Summary | Summary of Care ---
Author Name Unknown Organization [facility] Address [address] [facility] [place] [address] Phone [phone] Care Team Providers Care Segmental Wall Installer Name Role Phone Unavailable Primary Care Provider Unavailabl e Reason for Visit * Reason Onset Date Comments Patient Assistance Program 07/13/2023 Humir a- no rx coverage Encounter Details Date Type Department Care Team (Late st Contact Info) Description 07/13/2023 Telephone Gastroenterology, [facility] [address] [place] [address] Carolina Noyola CRNP [address] [place] [address] Patient Assistance Program (Humira- no rx ... 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 Increased risk for Familial Adenomatous Polyposis. Please [...] Notes * Telephone Encounter - Marcos James [facility] - 07/13/2023 3:40 PM EST Received a call back from patient. [facility] advised this is in process and if approved, it will notbe active until 08/04. Patient states his old Part D insurance no longer exists - they were supposed to send a letter but patient never received. Patient was advised to contact with updates or if symptoms develop. [facility] - may medication assistance be started? * Telephone Encounter - Marcos James [facility] - 07/13/2023 1:15 PM EST Spoke with patient. He states he did not know his Part D . He contacted Medicare and had been connected to obtain [employer] Part D coverage on 07/11/23 but states this may take up to 10 days to be active. I highly advised patient to contact [facility] today to inquire on status and to request theapplication be marked urgent. Patient may be able to be approved for clinical quality rn assistance but this would likely take a longer time than having active insurance. Patient has no pens and is due 07/15. Patient will return call to manual writer with update. Gastro Pre-Cert Request Specialty Medication: Yes. Medication/Disease State Information: Medication: Adalimumab (Humira) Maintenance - 40mg/0.8ml Pen - 40mg every 2 weeks Diagnosis (including ICD-10): Crohn's disease K50.90. Specialty medication - route to [id number]. Referral to pharmacist for: co-management. Office Information: [...] AM EDT Office Visit Dermatology Carine Smiley [place] [address] [place] [address] Jai Christensen MD 200 [facility] [place] [address] Scheduled Procedures Name Priority Associated Diagnoses Date/Ti [...]
--- OUTSIDE RECORDS SUMMARY | 2023-11-23 13:18 | External Medical Summary | Summary of Care ---
Author Name Unknown Organization [facility] Address [address] [facility] [place] [address] Phone [phone] Care Team Providers Care Comptroller Name Role Phone Unavailable Primary Care Provider Unavailabl e Reason for Visit * Reason Onset Date Comments Patient Assistance Program 07/13/2023 11 TS W PATIENT ASSISTANCE- WAITING ON PROVIDER PORTION Encounter Details Date Type Department Care Team (Late st Contact Info) Description 07/13/2023 Telephone Gastroenterology, [facility] [address] [place] [address] Carolina Noyola CRNP [address] [place] [address] Patient Assistance Program (11 TSW PATIENT... 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 Increased risk for Familial Adenomatous Polyposis. Please [...] Notes * Telephone Encounter - Marcos James [facility] - 07/20/2023 12:38 PM EST I attempted to contact patient x 2 to follow-up. Phone disconnects after a couple rings. [employer] assistance is still in process * Telephone Encounter - Marcos James [facility] - 07/13/2023 3:40 PM EST Received a call back from patient. [facility] advised this is in process and if approved, it will notbe active until 08/04. Patient states his old Part D insurance no longer exists - they were supposed to send a letter but patient never received. Patient was advised to contact with updates or if symptoms develop. [facility] - may medication assistance be started? * Telephone Encounter - Marcos James [facility] - 07/13/2023 1:15 PM EST Spoke with patient. He states he did not know his Part D . He contacted Medicare and had been connected to obtain [facility] Part D coverage on 07/11/23 but states this may take up to 10 days to be active. I highly advised patient to contact [facility] today to inquire on status and to request theapplication be marked urgent. Patient may be able to be approved for junior database administrator assistance but this would likely take a longer time than having active insurance. Patient has no pens and is due 07/15. Patient will return call to keno writer / runner with update. Gastro Pre-Cert Request Specialty Medication: Yes. Medication/Disease State Information: Medication: Adalimumab (Humira) Maintenance - 40mg/0.8ml Pen - 40mg every 2 weeks Diagnosis (including ICD-10): Crohn's disease K50.90. Specialty medication - route to [id number]. Referral to pharmacist for: co-management. Office Information: [...] State Kathi Randall [address] [place] [address] Jai Christensen MD [address] [place] [address] Scheduled Procedures Name Priority Associated Diagnoses Date/Ti [...]
--- OUTSIDE RECORDS SUMMARY | 2023-11-23 13:18 | External Medical Summary | Summary of Care ---
Author Name Unknown Organization [facility] Address [address] [facility] [place] [address] Phone [phone] Care Team Providers Care Hydraulic Modeling Engineer Name Role Phone Unavailable Primary Care Provider Unavailabl e Reason for Visit * Reason Onset Date Comments Pre Cert/Prior Auth 07/13/2023 Encounter Details Date Type Department Care Team (Late st Contact Info) Description 07/13/2023 Telephone Gastroenterology, [facility] [address] [place] [address] Carolina Noyola CRNP [address] [place] [address] Pre Cert/Prior Auth Allergies No known active [...] 10/28/2020 Overview: pathogenic APC gene variant (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 Increased risk for Familial Adenomatous Polyposis. Please [...] Medicare and had been connected to obtain [employer] Part D coverage on 07/11/23 but states this may take up to 10 days to be active. I highly advised patient to contact [employer] today to inquire on status and to request theapplication be marked urgent. Patient may be able to be approved for structural steel worker helper assistance but this would likely take a longer time than having active insurance. Patient has no pens and is due 07/15. Patient will return call to television writer with update. Gastro Pre-Cert Request Specialty Medication: Yes. Medication/Disease State Information: Medication: Adalimumab (Humira) Maintenance - 40mg/0.8ml Pen - 40mg every 2 weeks Diagnosis (including ICD-10): Crohn's disease K50.90. Specialty medication - route to [id number]. Referral to pharmacist for: co-management. Office Information: [...] 09/29/2023 8:15 AM EDT Office Visit Dermatology [facility] [address] [facility] [place] [address] Jai Christensen MD [address] [facility] [address] Scheduled Procedures Name Priority Associated Diagnoses Date/Ti [...]
--- NOTE | 2023-11-23 16:27 | Electrocardiogram Report ---
Test Reason : Blood Pressure : / mmHG Vent. Rate : 075 BPM Atrial Rate : 074 BPM P-R Int : 140 ms QRS Dur : 078 ms QT Int : 404 ms P-R-T Axes : 053 -05 057 degrees QTc Int : 451 ms Poor data quality, interpretation may be adversely affected Normal sinus rhythm Fusion complexes Inferior infarct , age undetermined Possible Anterior infarct , age undetermined Abnormal ECG When compared with ECG of 22-NOV-2023 14:51, Significant changes have occurred Confirmed by Meet Oleary ([id number]) on 11/23/2023 4:27:20 PM Referred By: REFERRED SELF Confirmed By:Meet Oleary
--- NOTE | 2023-11-23 16:52 | Electrocardiogram Report ---
Test Reason : Blood Pressure : / mmHG Vent. Rate : 058 BPM Atrial Rate : 058 BPM P-R Int : 156 ms QRS Dur : 076 ms QT Int : 422 ms P-R-T Axes : 029 -06 012 degrees QTc Int : 414 ms Sinus bradycardia with Premature atrial complexes with Aberrant conduction Inferior infarct (cited on or before 22-NOV-2023) Abnormal ECG When compared with ECG of 22-NOV-2023 16:33, (unconfirmed) No significant change Confirmed by Meet Oleary ([id number]) on 11/23/2023 4:52:19 PM Referred By: REFERRED SELF Confirmed By:Meet Oleary
--- NOTE | 2023-11-23 21:02 | Hospitalist Progress Note ---
Date of Service November 23, 2023 Assessment & Plan (1) STEMI (ST elevation myocardial infarction): Plan: Presented with substernal chest pain, nausea, and diaphoresis developed around 1230 on 11/21. Heart alert in the ED; EKG revealed acute inferior STEMI Last Greaser with Dr. Stanford-->100% mid RCA acute occlusion s/p 2 LIZZIE with LIZZIE also into distal right posterior AV branch into PLB. Also with multivessel nonculprit CAD with 50% distal left main stenosis, 40-50% ostial LAD, small D1 60% proximal, and mid circumflex with 40 to 50% stenosis Appreciate Cardiology consult and management Doing very well with only a couple brief runs of VT on telemetry overnight Troponin peaked at 39,000 and has come down to 26,000 this morning. He is no longer symptomatic and is hemodynamically stable Echocardiogram with mild LVH, LVEF 45-50% with basal to mid moderate inferior/inferoseptal hypokinesis, mildly dilated RV with normal RV function, mild AI, mildly dilated ascending aorta (4.3 cm) Continue aspirin and Brilinta for at least 1 year Added on metoprolol to tartrate 12.5 Mg p.o. twice daily-convert to Toprol-XL on discharge Added on lisinopril 10 mg daily Added atorvastatin 80 mg daily-lipid panel with total cholesterol 172, LDL 110, HDL 42 Hemoglobin A1c in prediabetes range-lifestyle and dietary changes recommended Continue to monitor on telemetry overnight and plan to discharge to home tomorrow if continuing to do well Follow-up with cardiology as an outpatient and consult cardiac rehab as an outpatient (2) CAD (coronary artery disease): Plan: As noted above (3) Ischemic cardiomyopathy: Plan: As noted above (4) Prediabetes: Plan: Hemoglobin A1c 6.4% Recommend dietary and lifestyle changes Follow-up with PCP (5) Crohn's disease: Plan: Continue Humira as an outpatient Plan Disposition: Stable for downgrade out of ICU to PCU, likely discharged home tomorrow DVT prophylaxis-ambulation Admission and Anticipated Discharge Date Admission Date: November 22, 2023 Subjective Patient feeling very well today. Denies any chest pain or pressure, no shortness of breath. He has been ambulating the halls without difficulty. Physical Exam Constitutional: WD/WN, vitals as above Neck: trachea midline, no thyromegaly Respiratory: normal respiratory effort, lungs clear to auscultation Cardiovascular: RRR, no murmur, no edema Skin: no rashes, warm and dry Neurologic: moves all extremities and awake; no focal motor deficits Psychiatric: A+Ox3, euthymic affect Lymphatic: no lymphedema Results & Data Results & Data Vital Signs (Past 12 Hours) Vital Signs Temp Pulse Pulse Resp BP BP Pulse Ox 11/23/23 16:00 36.8 C 64 16 118/73 98 11/23/23 12:45 60 23 11/23/23 12:30 50 L 22 11/23/23 12:27 134/86 11/23/23 12:26 60 5 L 11/23/23 12:15 50 L 23 11/23/23 12:00 61 24 11/23/23 11:35 36.6 C 58 L 16 134/86 98 11/23/23 11:33 58 L 11/23/23 11:01 59 L 13 11/23/23 10:46 63 14 93 11/23/23 10:31 53 L 17 97 11/23/23 10:15 57 L 23 97 11/23/23 10:11 89 L 11/23/23 09:45 61 25 H 97 11/23/23 09:33 75 15 11/23/23 09:15 59 L 10 L 98 11/23/23 09:03 65 13 98 O2 Del Method 11/23/23 16:00 Room Air 11/23/23 12:45 11/23/23 12:30 11/23/23 12:27 11/23/23 12:26 11/23/23 12:15 11/23/23 12:00 11/23/23 11:35 Room Air 11/23/23 11:33 11/23/23 11:01 11/23/23 10:46 11/23/23 10:31 11/23/23 10:15 11/23/23 10:11 11/23/23 09:45 11/23/23 09:33 11/23/23 09:15 11/23/23 09:03 Laboratory Results CBC, BMP, hemoglobin A1c, magnesium, troponin, lipid panel reviewed PG Care Time/CCT Total # of Minutes Spent Total Time Spent with Patient: Total time spent is greater than 50% in coordination of care (as documented) at patient's floor/unit and/or counseling patient: Coding Level of Care Code 49440 SUB INP/OBS CARE 2MIN Diagnoses STEMI (ST elevation myocardial infarction) I21.3 CAD (coronary artery disease) I25.10 Ischemic cardiomyopathy I25.5 Prediabetes R73.03 Crohn's disease K50.90
[2023-11-24 04:21] LABS: BUN Creatinine Ratio 16.4 (10-20); Calcium 9.2 mg/dl (8.6-10.3); Creatinine Clr Calc Pharmacy 86.1 ml/min; Est GFR (African American) 107.4 ml/min; Est GFR (Non-African American) 92.7 ml/min; Potassium 3.8 mmol/L (3.5-5.1)
[2023-11-24 04:25] LABS: Basophils # (auto) 0.05 K/uL (0.00-0.20); Basophils % (auto) 0.6 %; Eosinophils # (auto) 0.06 K/uL (0.00-0.50); Eosinophils % (auto) 0.7 %; Hematocrit (blood only) 43.9 % (42.0-52.0); Immature Granulocytes # (auto) 0.03 K/uL (0.01-0.20); Immature Granulocytes % (auto) 0.3 %; Lymphocytes # (auto) 2.37 K/uL (1.20-3.40); Lymphocytes % (auto) 27.6 %; Mean Corpuscular Hemoglobin 30.2 pg (25.0-34.0); Mean Corpuscular Hgb Conc 34.2 g/dL (32.0-36.0); Mean Corpuscular Volume 88.3 fL (80.0-100.0); Mean Platelet Volume 11.8 fL (9.4-12.4); Monocytes # (auto) 0.69 K/uL (0.11-0.59); Neutrophils # (auto) 5.39 K/uL (1.40-6.50); Neutrophils % (auto) 62.8 %; Platelet Count 154 K/uL (130-400); RDW Coefficient of Variation 13.4 % (11.5-14.5); RDW Standard Deviation 43.5 fL (36.4-46.3); Red Blood Count 4.97 M/uL (4.70-6.10); White Blood Count 8.59 K/ul (4.8-10.8)
[2023-11-24] MEDS: METOPROLOL SUCC 25MG EXT REL TAB PO SCH (09:22)
--- NOTE | 2023-11-24 10:48 | Cardiology Progress Note ---
Date of Service November 24, 2023 Assessment & Plan (1) CAD (coronary artery disease): Plan: Inferior UT LIZZIE mid RCA, posterior AV branch Residual 50% distal left main, 40-50% ostial LAD, 60% small D1, 45% mid LCx 2. Ischemic cardiomyopathyEF 45 to 50%, inferior/inferoseptal wall motion abnormality 3. DyslipidemiaLDL 110 4. Borderline [id number] 6.4 5. Brief nonsustained VT 6. Crohn's disease 7. Mildly dilated ascending aorta, mild AI Patient feeling well, chest pain-free. Troponin peaked. Hemodynamically and electrically stable. From a cardiac standpoint okay with discharge today. On discharge: Continue DAPT with aspirin, ticagrelor for 1 year Continue current lisinopril, and transition metoprolol to Toprol-XL Continue current statin Will arrange follow-up with me in 1 to 2 weeks. We discussed cardiac rehab. Admission and Anticipated Discharge Date Admission Date: November 22, 2023 Subjective Patient feeling well today. No recurrent chest pain. No other new concerns. Telemetry reviewedno significant ectopy Review of Systems Review of Systems: All systems reviewed & are unremarkable except as noted in HPI & below Physical Exam Physical Exam: General: Comfortable HEENT: Sclerae anicteric Lungs: Clear to auscultation bilaterally Cardiac: Regular rate and rhythm, no murmurs. Vascular: Right radial artery access site with no ecchymosis, hematoma. Distal pulse and sensation intact. Abdomen: Soft, nontender Extremities: Well perfused, no peripheral edema Neuro: Nonfocal Psych: Alert orient x3, normal affect and mood Results & Data Vital Signs (Past 12 Hours) Vital Signs Temp Pulse Pulse Resp BP Pulse Ox O2 Del Method 11/24/23 08:00 98.1 F 72 18 104/67 98 Room Air 11/24/23 04:00 98.2 F 64 15 117/67 96 Room Air 11/23/23 23:50 98.2 F 63 15 119/71 96 Room Air 11/23/23 23:50 70 PG Care Time/CCT Total # of Minutes Spent Total Time Spent with Patient: Total time spent is greater than 50% in coordination of care (as documented) at patient's floor/unit and/or counseling patient: Coding Level of Care Code 38758 SUB INP/OBS CARE 2/35MIN Diagnoses CAD (coronary artery disease) I25.10
--- NOTE | 2023-11-24 10:58 | Discharge Summary ---
Discharge Summary Date of Service November 24, 2023 Notes For Next Care Provider Needs Cardiology follow up and cardiac rehab referral Medication Changes From Visit Added aspirin 81 mg daily Added Brilinta 90 Mg p.o. twice daily Added atorvastatin 80 mg p.o. every morning Added Toprol-XL 25 mg p.o. every morning Added lisinopril 10 mg p.o. every morning Admission HPI Per Admitting Provider Jesus is a 73-year-old male with PMH of Crohn's disease (on Humira), proctitis, and rectal fissure. Patient presented for chest pain that began around 1230 on 11/21. 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 Then when driving home, he developed "squeezing" substernal chest pain that was constant. The pain radiated to his back. No radiation to the shoulders neck or jaw. Patient then became diaphoretic and nauseous. He took 2 tablets of Tylenol prior to coming in to the ED. EKG on arrival revealed acute inferior STEMI, and heart alert was called. Patient was taken to the [facility] with Dr. Stanford. Per review of operative note, patient was found to have severe CAD; successful PCI. Mid RCA stent secondary to 100% acute occlusion; a second stent was placed in the distal right posterior AV branch. Patient is chest pain-free following the procedure. He rates his pain 0 out of 10. He denies having any chest pain in the past few weeks, or exertional angina. He does have a history of esophageal reflux, but he does not believe this was chest pain. No prior experiences like this 1. No prior MIs to his knowledge. No PMH of HTN, HLD, DM, DVT/PE, or PVD. He does note he is borderline diabetic. He denies smoking, tobacco use, alcohol use, or recreational drug use. He does have a family history of extensive MIs/CVAs; for instance his grandma of a stroke. No family members that of MIs prior to 55 years old. ROS postcatheterization: Patient endorses some dizziness following the procedure that has resolved. Patient denies fever, chills, sweating, lightheadedness, headache, changes in vision, chest pain, chest pressure, chest palpitations, pleuritic CP, SOB, cough, abdominal pain, N/V/D, changes in urinary or bowel habits, or numbness or tingling in the arms or legs. Principal Dx & Hospital Course #1 = Principal Diagnosis (1) STEMI (ST elevation myocardial infarction): Presented with substernal chest pain, nausea, and diaphoresis developed around 1230 on 11/21. Heart alert in the ED; EKG revealed acute inferior STEMI Booster As[facility]er with Dr. Stanford-->100% mid RCA acute occlusion s/p 2 LIZZIE with LIZZIE also into distal right posterior AV branch into PLB. Also with multivessel nonculprit CAD with 50% distal left main stenosis, 40-50% ostial LAD, small D1 60% proximal, and mid circumflex with 40 to 50% stenosis Appreciate Cardiology consult and management Doing very well with only a couple brief runs of VT on telemetry in the first 24 hours Troponin peaked at 39,000 and has come down to 26,000. He is no longer symptomatic and is hemodynamically stable Echocardiogram with mild LVH, LVEF 45-50% with basal to mid moderate inferior/inferoseptal hypokinesis, mildly dilated RV with normal RV function, mild AI, mildly dilated ascending aorta (4.3 cm) Continue aspirin and Brilinta for at least 1 year Added on Toprol-XL 25 mg daily Added on lisinopril 10 mg daily Added atorvastatin 80 mg daily-lipid panel with total cholesterol 172, LDL 110, HDL 42 Hemoglobin A1c in prediabetes range-lifestyle and dietary changes recommended Follow-up with cardiology as an outpatient and consult cardiac rehab as an outpatient (2) CAD (coronary artery disease): As noted above (3) Ischemic cardiomyopathy: As noted above (4) Prediabetes: Hemoglobin A1c 6.4% Recommend dietary and lifestyle changes Follow-up with new PCP (5) Crohn's disease: Continue Humira as an outpatient, no acute issues Follows with [facility] GI Plan Disposition: Stable for discharge to home DVT prophylaxis-ambulation Discharge Exam Constitutional WD/WN, vitals as above Neck trachea midline, no thyromegaly Respiratory normal respiratory effort, lungs clear to auscultation Cardiovascular RRR, no murmur, no edema Skin no rashes, warm and dry Neurologic moves all extremities and awake; no focal motor deficits Psychiatric A+Ox3, euthymic affect Lymphatic no lymphedema Updated Medication List Medication Instructions Recorded Confirmed Type adalimumab 40 mg/0.4 mL 40 mg subcut .Q2WKS 11/22/23 11/22/23 History subcutaneous syringe kit (Humira(CF)) aspirin 81 mg tablet,delayed 81 mg PO QAM #30 tabs 11/24/23 Rx release atorvastatin 80 mg tablet 80 mg PO DAILY #30 tabs 11/24/23 Rx lisinopril 10 mg tablet 10 mg PO QAM #30 tabs 11/24/23 Rx metoprolol succinate 25 mg 25 mg PO DAILY #30 tabs 11/24/23 Rx tablet,extended release 24 hr (Toprol XL) ticagrelor 90 mg tablet (Brilinta) 90 mg PO BID #60 tabs 11/24/23 Rx Hospital Stay Data Consultations 11/22/23 15:27 Consult Casework Supervisor Routine 11/23/23 08:41 Consult Cardiology Routine Procedures Performed Operation Date: 11/22/23 15:00 Actual Procedures p Cineradiography w/Routine Exam - Aly Stanford MD s Aspiration/PCI w/LIZZIE for Stemi - Aly Stanford MD s Cath, Left with Cors and Vent - Aly Stanford MD Diagnostic Imagining Performed 11/22/23 14:57 CL Cath Imgs for PACS use only Stat Pending Results Patient Have Any Pending Studies at Discharge: No Discharge Instructions Given to Patient (Per Discharging Provider) You were admitted with a heart attack and had 2 stents put in your heart to relieve the blockage. Is very important that you take your medications exactly as prescribed and follow-up with the stock sorter and your primary care physician. Your heart is slightly weakened after the heart attack but hopefully this should recover now that you have the stents in place and you are on the proper medications. You do have prediabetes and should follow a low carbohydrate diet to prevent this from turning into full-blown diabetes. You do not need to check your blood sugars at home or take medication for this. ACTIVITY RECOMMENDATIONS: Excess manipulation of the wrist should be avoided for the next 24-48 hours. * No lifting over 2 pounds (approximately a 1/2 gallon of milk) with the utilized arm for 24 hours. * No strenuous activity such as bowling or tennis for 3 days. * Keep the site of the procedure covered with a bandage for 24 hours. *You may shower the day after the procedure. Do not take a tub bath or submerge the puncture site in water for the next 3 days. *Do not operate any motorized equipment for 3 days. SPECIAL CARE INSTRUCTIONS: The site may be slightly bruised and sore following your procedure. Should any of the following occur, contact the Dr. who performed your procedure. 1. Redness/inflammation, swelling, chills, or fever, or colored drainage at procedure site within 3-7 days after your procedure. 2. Coldness, discoloration, ongoing numbness, severe pain, or swelling. Expect mild tingling of hand and tenderness at the puncture site for up to three days. If this persists beyond three days, or other symptoms develop, notify the Dr. who performed your procedure. BLEEDING: If the procedure site on your wrist begins to bleed, do not panic 1. Place 1 or 2 fingers firmly just slightly above the insertion site to stop the bleeding. You may be able to feel your pulse as you hold pressure. 2. Lift your finger after 5 minutes to see if the bleeding has stopped. 3. Once the bleeding has stopped, gently wipe the wrist area clean with a bandage. * If the bleeding from your wrist does not stop after 10 minutes, or if there is a large amount of bleeding or spurting, call 911 (do not drive yourself to the hospital). SKIN IRRITATION: * You may experience some redness and/or swelling in the area where radiation was administered. If any skin irritation occurs, please contact your family physician. FOLLOW UP VISIT: Keep any scheduled doctor appointments. Home Care: * Take your medications exactly as directed. Don't skip doses. * Remember that recovery after a heart attack takes time. Plan to rest for at lease 4-8 weeks while you recover. Then return to normal activity when your doctor says it's okay. * Ask your doctor about joining a heart rehabilitation program. * Tell your doctor if you are feeling depressed. Feelings of sadness are common after a heart attack, but it is important that you speak to someone if you are feeling overwhelmed by these feelings. * If you are having chest pain, call 911 for an ambulance. Do NOT drive yourself to the hospital. * Ask your family members to learn CPR. * Learn to take your own blood pressure and pulse. Keep a record of your results. Ask your doctor when you should seek emergency medical attention. He or she will tell you which blood pressure reading is dangerous. Lifestyle Changes: * Maintain a healthy weight. Get help to lose any extra pounds. * Cut back on salt. * Limit canned, dried, packaged, and fast foods. * Don't add salt to your food. * Season foods with herbs instead of salt when you cook. * Break the smoking habit. Enroll in a stop-smoking program to improve your chances of success. * Limit fatty foods. * Ask your doctor about having your lipid levels checked regularly. * Build up your activity according to your doctor's recommendation. * Ask your doctor when it's okay to resume sexual activity. * Tell your doctor about any erectile dysfunction (ED) medication you are taking. Some ED medications are not safe if you take certain heart medications. * Try to manage stress. Follow Up: It is important for you to keep your follow up appointments with your medical provider. Total Time Total Time Spent Total Time Spent (In Minutes): 40 minutes Total Time Includes: Examination of the Patient, Discharge Planning, Medication Reconciliation, Communication With Other Providers (Cardiology) and Other (Nurse navigator) Coding Level of Care Code 25420 INP/OBS DISCH >30 MIN Diagnoses STEMI (ST elevation myocardial infarction) I21.3 CAD (coronary artery disease) I25.10 Ischemic cardiomyopathy I25.5 Prediabetes R73.03 Crohn's disease K50.90
== END 2023-11-24 12:02 | disposition home or self-care (01) | DRG 322 ==
LOC: ED 14:37 → CC 15:10 → SUATTDRO 15:26 → 1E 15:26
DX: R73.03 Prediabetes; K50.90 Crohn's disease, unspecified, without complications; I21.11 ST elevation (STEMI) myocardial infarction involving right coronary artery; E11.9 Type 2 diabetes mellitus without complications; R00.1 Bradycardia, unspecified; I25.5 Ischemic cardiomyopathy; I25.10 Atherosclerotic heart disease of native coronary artery without angina pectoris; E78.5 Hyperlipidemia, unspecified; I47.20 Ventricular tachycardia, unspecified; I47.19 Other supraventricular tachycardia